=== PATIENT | female | born 1935 | race Caucasian/White ===

== ENCOUNTER → 2016-11-08 | Outpatient (CLI) | payer MEDICARE | END | disposition home or self-care (01) | LOC: LABWHC1 09:01 | PROVIDERS: ATTEND Internal Medicine Interventional Cardiology | DX: E03.9 Hypothyroidism, unspecified (principal) | CPT/HCPCS: 36415; 84439; 84443 ==

== ENCOUNTER → 2016-11-21 | Outpatient (CLI) | payer MEDICARE ==
--- NOTE | 2016-11-21 11:16 | MM ---
Reason for exam: history of breast cancer, mastectomy. Last mammogram was performed 1 year ago. History: Patient is postmenopausal, has history of breast cancer at age 69, and had previous chest radiation therapy at age 69. Family history of breast cancer in maternal cousin at age 54. Mastectomy of the right breast, October 2005. Lumpectomy of the right breast, September 2005. Chemotherapy, 2005. Radiation therapy of the right breast, 2005. Physical Findings: Nurse did not find any significant physical abnormalities on exam. MG Diagnostic Mammo LT w CAD CC and MLO view(s) were taken of the left breast. Prior study comparison: November 20, 2015, left breast MG 3d diag mammo w/cad LT. November 17, 2014, left breast MG diagnostic mammo LT w CAD. November 15, 2013, left breast MG diagnostic mammo LT w CAD. The breast tissue is heterogeneously dense. This may lower the sensitivity of mammography. Finding: There are typically benign vascular, round calcifications in the left breast. There is no discrete abnormality. These results were verbally communicated with the patient and result sheet given to the patient on 11/21/16. ASSESSMENT: Benign, BI-RAD 2 RECOMMENDATION: Follow-up diagnostic mammogram of the left breast in 1 year.
== END | disposition home or self-care (01) ==
LOC: RADMAMWWP 10:31
PROVIDERS: ATTEND Internal Medicine Hematology & Oncology
DX: Z85.3 Personal history of malignant neoplasm of breast (principal)

== ENCOUNTER 2016-12-07 07:55 | Day surgery (SDC) | payer MEDICARE ==
[2016-11-30 14:03] VITALS: BMI 27.3
[~2016-12-07 07:55] MED LIST: CLINDAMYCIN 900 MG in DEXTROSE 5% IN WATER 50 ML IVPB ONE; DEXAMETHASONE SOD PHOSPHATE 10 MG/ML 1 ML VIAL IV ONE; HYDROmorphone 1 MG/ML 1 ML SYRINGE IVP PRN; LACTATED RINGERS 1,000 ML IV SCH; MIDAZOLAM 2 MG/2 ML VIAL IV PRN; ONDANSETRON 4 MG/2 ML VIAL IVP ONE
[2016-12-07] MEDS ORDERED: LIDOCAINE 1% 20 ML VIAL (10MG/ML) FOR IV START INTRADERMA ONE (08:54)
--- NOTE | 2016-12-07 08:57 | P.GSHP ---
History of Present Illness H&P Date: 12/07/16 Chief Complaint: Incisional hernia This is a 81-year-old female who has developed a incisional hernia. Patient had a previous low anterior section. Her low midline incision has developed a mass. Hernia is reducible. Past Medical History Past Medical History: Coronary Artery Disease (CAD), Cancer, Hyperlipidemia, Hypertension, Osteoarthritis (OA), Thyroid Disorder Additional Past Medical History / Comment(s): HX OF BREAST CANCER WITH CHEMO & RADIATION (11YRS AGO), CONSTIPATION, ARTHRITIS IN HANDS. History of Any Multi-Drug Resistant Organisms: None Reported Past Surgical History: Appendectomy, Breast Surgery, Heart Catheterization With Stent, Hysterectomy, Tonsillectomy Additional Past Surgical History / Comment(s): LEFT CAROTID ENDARTECTOMY. BILATERAL CATARACTS., RIGHT MASTECTOMY., HEART CATH WITH STENTS (09/05/2002 & 02/20) Past Anesthesia/Blood Transfusion Reactions: No Reported Reaction Date of Last Stent Placement:: 02/20/2003 Past Psychological History: No Psychological Hx Reported Smoking Status: Former smoker Past Alcohol Use History: Daily Additional Past Alcohol Use History / Comment(s): QUIT: 1992 SMOKED: FOR 35 years, Smoked 2-2 1/2 PPD. Drinks 1 glass of wine daily. Past Drug Use History: None Reported - Past Family History Father Family Medical History: Myocardial Infarction ([place]) Mother Family Medical History: Myocardial Infarction ([place]) Medications and Allergies Home Medications Medication Instructions Recorded Confirmed Type Aspirin [Adult Low Dose Aspirin EC] 81 mg PO DAILY 08/27/15 11/30/16 History Levothyroxine Sodium 88 mcg PO QAM 08/27/15 11/30/16 History Losartan Potassium 100 mg PO QAM 08/27/15 11/30/16 History Simvastatin [Zocor] 80 mg PO HS 08/27/15 11/30/16 History Ezetimibe [Zetia] 10 mg PO DAILY 09/14/15 11/30/16 History Metoprolol Tartrate 25 mg PO BID 11/30/16 11/30/16 History Allergies Allergy/AdvReac Type Severity Reaction Status Date / Time Penicillins Allergy PASSED OUT Verified 12/07/16 08:21 Surgical - Exam Vital Signs Temp Pulse Resp BP Pulse Ox 97.3 F L 68 16 127/81 100 12/07/16 08:25 12/07/16 08:25 12/07/16 08:25 12/07/16 08:25 12/07/16 08:25 - General well developed, no distress - Eyes PERRL - ENT normal pinna - Neck no masses - Respiratory normal expansion - Cardiovascular Rhythm: regular - Abdomen Abdomen: non tender Hernia: incisional Assessment and Plan Plan: Incisional hernia. We'll perform laparoscopic robotic-assisted repair.
[2016-12-07] MEDS ORDERED: HEPARIN SODIUM,PORCINE 5,000 UNIT/ML 1 ML VIAL SQ ONE (09:05)
[2016-12-07] MEDS ORDERED: PHENYLEPHRINE-0.9% NACL SYG 1 MG/10 ML SYRINGE ONE (09:25)
[2016-12-07] MEDS ORDERED: fentaNYL (PF) 50 MCG/ML 2 ML AMP ONE (09:25)
[2016-12-07] MEDS ORDERED: SUCCINYLCHOLINE CHLORIDE 100 MG/5 ML SYR IV ONE (09:25)
[2016-12-07] MEDS ORDERED: GLYCOPYRROLATE 0.2 MG/ML 2 ML VIAL ONE (09:25)
[2016-12-07] MEDS ORDERED: NEOSTIGMINE 1 MG/ML 10 ML VIAL ONE (09:25)
[2016-12-07] MEDS ORDERED: ESMOLOL 100 MG/10 ML VIAL ONE (09:25)
[2016-12-07] MEDS ORDERED: ROCURONIUM BROMIDE 10 MG/ML 10 ML VIAL IV ONE (09:25)
[2016-12-07] MEDS ORDERED: ePHEDrine 50 MG/ML 1 ML AMP ONE (09:25)
[2016-12-07] MEDS ORDERED: MEPERIDINE 50 MG/ML SYRINGE ONE (09:25)
[2016-12-07] MEDS ORDERED: PROPOFOL 10 MG/ML 20 ML VIAL IV ONE (09:25)
[2016-12-07] MEDS ORDERED: LIDOCAINE 1% INJ 10MG/ML (20 ML MDV) ONE (09:25)
[2016-12-07] MEDS ORDERED: KETOROLAC 30 MG/ML 1 ML VIAL ONE (09:25)
[2016-12-07] MEDS ORDERED: MIDAZOLAM 2 MG/2 ML VIAL ONE (09:25)
[2016-12-07] MEDS ORDERED: LIDOCAINE 1%-EPI 1:100,000 20 ML VIAL SQ ONE (09:53)
--- NOTE | 2016-12-07 11:15 | P.OP ---
Date of Procedure: 12/07/16 Preoperative Diagnosis: Incisional hernia Postoperative Diagnosis: Incisional hernia Procedure(s) Performed: Laparoscopic robotic system repair of incisional hernia Implants: Anesthesia: MICHAELA Surgeon: James Berkowitz Estimated Blood Loss (ml): 10 Pathology: none sent Condition: stable Disposition: PACU Indications for Procedure: Operative Findings: Description of Procedure: The patient's placed on the operating table in the supine position. She received general anesthesia. Her abdomen was prepped and draped usual fashion. The skin incision sites were anesthetized 1% local Xylocaine. Using 11 blade the skin was incised upper quadrant then using a 5 mm optical trocar under direct visitation the peritoneal cavity is entered the abdomen was then insufflated. Next a 8 mm robotic trocar was placed in the left lower quadrant and a 12 mm trocar was placed in the left lateral position and the initial 5 mm trocar was replaced with a 8 mm robotic trocar. The patient's placed left side up position and then the patient was docked to the robot. The incisional hernia was visualized. The incisional hernias repaired using #1 strata fix suture. The hernia was then buttressed with ventral light ST mesh was secured with 20V lock suture. The patient was then undocked the robot. The needles were retrieved. The fascia of the 12 mm trocar site was closed with 0 Ethibond suture. Skin was closed interrupted 3-0 Monocryl suture. Dermabond was applied. Patient top procedure well and was sent to recovery in stable condition.
[2016-12-07] MEDS ORDERED: LACTATED RINGERS 1,000 ML IV ONE ×3 (11:23→13:55)
[2016-12-07 12:10] VITALS: TEMP 97.2
--- NOTE | 2016-12-07 12:16 | XR ---
EXAMINATION TYPE: XR chest 1V DATE OF EXAM: 12/07/2016 COMPARISON: 11/04/2010 INDICATION: Postop incisional umbilical hernia, low blood pressure, short of breath TECHNIQUE: Single frontal view of the chest is obtained. FINDINGS: The heart size is mildly prominent. The pulmonary vasculature is normal. Subcutaneous emphysema is along the left lateral chest wall. Exam is in the upright position. No pneu mothorax is evident on this image. Subcutaneous emphysema is a site of potential pneumothorax. Follo w-up exams can be performed as clinically indicated. IMPRESSION: 1. No pneumothorax is identified. There is subcutaneous emphysema lateral to the left chest wall of uncertain source. Could laparoscopic surgery be the source?
[2016-12-07 13:00] LABS: Basophils % (A) 0 %; CH 28.2; CHCM 32.4; Eosinophils % (A) 0 %; HCT 30.8 % (34.0-46.0); HDW 2.28; HGB 10.4 gm/dL (11.4-16.0); Luc # (Auto) 0.09; Luc % (Auto) 1; Lymphocytes # (A) 0.8 k/uL (1.0-4.8); Lymphocytes % (A) 12 %; MCH 29.7 pg (25.0-35.0); MCHC 33.9 g/dL (31.0-37.0); MCV 87.5 fL (80.0-100.0); Mean Platelet Volume 6.2; Monocytes # (A) 0.1 k/uL (0-1.0); Monocytes % (A) 1 %; Neutrophils # (A) 5.4 k/uL (1.3-7.7); Neutrophils % (A) 85 %; RBC 3.52 m/uL (3.80-5.40); RDW 13.6 % (11.5-15.5); WBC 6.4 k/uL (3.8-10.6)
[2016-12-07 13:08] VITALS: RESP 16
[2016-12-07] MEDS ORDERED: HYDROcodone/APAP 7.5-325MG 1 EACH TAB PO ONE (14:14)
[2016-12-07 14:51] VITALS: BP 103/67; PULSE 77
== END 2016-12-07 15:07 | disposition home or self-care (01) ==
LOC: OR 07:55
PROVIDERS: ATTEND Surgery
DX: K43.2 Incisional hernia without obstruction or gangrene (principal); I25.10 Atherosclerotic heart disease of native coronary artery without angina pectoris; I10 Essential (primary) hypertension; Z87.891 Personal history of nicotine dependence; E78.5 Hyperlipidemia, unspecified; E07.9 Disorder of thyroid, unspecified; Z79.82 Long term (current) use of aspirin; Z79.899 Other long term (current) drug therapy; Z88.0 Allergy status to penicillin
CPT/HCPCS: 86900; 86901; 85025; 86850; 71010; 49654; C1781; J2250; J1644; J1100; J2710; J2175; J2405; J2001; J3010; J1885; J1170; J2370; J0330; J2704

== ENCOUNTER → 2018-06-06 | Outpatient (CLI) | payer MEDICARE ==
--- NOTE | 2018-06-06 14:48 | MM ---
Reason for exam: additional evaluation requested from prior study. Last mammogram was performed 1 year and 6 months ago. History: Patient is postmenopausal, has history of breast cancer at age 69, and had previous chest radiation therapy at age 69. Family history of breast cancer in maternal cousin at age 54. Mastectomy of the right breast, October 2005. Lumpectomy of the right breast, September 2005. Chemotherapy, 2005. Radiation therapy of the right breast, 2005. Physical Findings: Nurse did not find any significant physical abnormalities on exam. MG 3D Diag Mammo W/Cad LT CC and MLO view(s) were taken of the left breast. Prior study comparison: November 21, 2016, left breast MG diagnostic mammo LT w CAD. November 20, 2015, left breast MG 3d diag mammo w/cad LT. The breast tissue is heterogeneously dense. This may lower the sensitivity of mammography. No significant new findings when compared with previous films. These results were verbally communicated with the patient and result sheet given to the patient on 06/06/18. ASSESSMENT: Negative, BI-RAD 1 RECOMMENDATION: Follow-up diagnostic mammogram of the left breast in 1 year.
== END | disposition home or self-care (01) ==
LOC: RADMAMWWP 13:01
PROVIDERS: ATTEND Family Medicine
DX: Z08 Encounter for follow-up examination after completed treatment for malignant neoplasm (principal); Z85.3 Personal history of malignant neoplasm of breast
CPT/HCPCS: 77065; G0279; 77061

== ENCOUNTER → 2018-09-04 | Outpatient (CLI) | payer MEDICARE ==
[2018-09-04 15:10] LABS: HCT 42.2 % (34.0-46.0); HGB 13.4 gm/dL (11.4-16.0); MCH 27.8 pg (25.0-35.0); MCHC 31.7 g/dL (31.0-37.0); MCV 87.7 fL (80.0-100.0); Mean Platelet Volume 6.4; Platelet Count 238 k/uL (150-450); RBC 4.82 m/uL (3.80-5.40); RDW 12.9 % (11.5-15.5); WBC 7.4 k/uL (3.8-10.6)
[2018-09-04 15:20] LABS: Anion Gap 10 mmol/L; Blood Urea Nitrogen 28 mg/dL (7-17); Carbon Dioxide 22 mmol/L (22-30); Chloride 102 mmol/L (98-107); Potassium 4.4 mmol/L (3.5-5.1); Sodium 134 mmol/L (137-145)
== END | disposition home or self-care (01) ==
LOC: LABPAT 14:24
PROVIDERS: ATTEND Internal Medicine Interventional Cardiology
DX: Z01.812 Encounter for preprocedural laboratory examination (principal); I20.9 Angina pectoris, unspecified; I10 Essential (primary) hypertension
CPT/HCPCS: 36415; 80051; 82565; 84520; 85027

== ENCOUNTER 2018-09-11 05:58 | Day surgery (SDC) | payer MEDICARE ==
[2018-09-11] MEDS ORDERED: ALPRAZolam 0.25 MG TAB PO PRN (05:59)
[2018-09-11] MEDS ORDERED: ALPRAZolam 0.5 MG TAB PO PRN (05:59)
[2018-09-11] MEDS ORDERED: SODIUM CHLORIDE 0.9% 1,000 ML in EMPTY BAG 1 BAG IV ONE (05:59)
[2018-09-11] MEDS ORDERED: NITROGLYCERIN SL TABS 0.4 MG TAB SUBLINGUAL PRN ×2 (05:59→08:26)
[2018-09-11] MEDS ORDERED: ATORVASTATIN 80 MG TAB PO STA (05:59)
[2018-09-11] MEDS ORDERED: ASPIRIN 325 MG TAB PO STA (05:59)
[2018-09-11] MEDS ORDERED: SODIUM CHLORIDE 0.9% 1,000 ML IV ONE (06:33)
[2018-09-11] MEDS ORDERED: LIDOCAINE 1% INJ 10MG/ML (20 ML MDV) ONE (07:16)
[2018-09-11] MEDS: MIDAZOLAM 2 MG/2 ML VIAL IVP ONE ×2 (07:22→07:25)
[2018-09-11] MEDS ORDERED: LIDOCAINE 1% INJ 10MG/ML (20 ML MDV) SQ ONE (07:24)
[2018-09-11] MEDS ORDERED: NITROGLYCERIN SL TABS 0.4 MG TAB SUBLINGUAL ONE ×4 (07:29→07:42)
[2018-09-11] MEDS ORDERED: HEPARIN SODIUM 1,000 UN/ML (10ML VL) ONE (07:39)
[2018-09-11] MEDS: HEPARIN SODIUM 1,000 UN/ML (10ML VL) IV ONE ×2 (07:40→07:54)
[2018-09-11] MEDS ORDERED: IOPAMIDOL-370 100ML BTL INJ ONE ×2 (07:50→08:06)
[2018-09-11] MEDS ORDERED: TICAGRELOR 90 MG TAB ONE (08:04)
[2018-09-11] MEDS ORDERED: TICAGRELOR 90 MG TAB PO ONE (08:06)
[2018-09-11] MEDS ORDERED: NITROGLYCERIN 1000MCG/10ML SYRINGE INTRAARTER ONE (08:11)
[2018-09-11] MEDS ORDERED: RX INFO: IV CONTRAST WAS GIVEN 1 EACH MISC MISCELLANE PRN (08:26)
[2018-09-11] MEDS ORDERED: ATROPINE SULFATE 0.1 MG/ML 10ML SYRINGE IV PRN (08:26)
[2018-09-11] MEDS ORDERED: ZOLPIDEM 5 MG TAB PO PRN (08:26)
[2018-09-11] MEDS ORDERED: MAG HYDROX/AL HYDROX/SIMETH 30 ML CUP PO PRN (08:26)
[2018-09-11] MEDS ORDERED: ALBUTEROL NEBULIZED 2.5 MG/3 ML INHALATION PRN (10:14)
[2018-09-11] MEDS ORDERED: NOREPINEPHRINE 1 MG/ML 4 ML VIAL IV ONE (11:15)
[2018-09-11] MEDS ORDERED: SODIUM CHLORIDE 0.9% 250 ML BAG ONE (11:15)
[2018-09-11] MEDS: ASPIRIN 81 MG PO SCH (14:14)
[2018-09-11] MEDS: METOPROLOL TARTRATE 25 MG TAB PO SCH ×2 (16:05→21:54)
[2018-09-11] MEDS: LOSARTAN 50 MG TAB PO SCH (16:05)
[2018-09-11] MEDS: SODIUM CHLORIDE 0.9% 1,000 ML IV SCH ×2 (16:06→21:53)
[2018-09-11 16:28] VITALS: BMI 26.9
--- NOTE | 2018-09-11 20:31 | CC ---
CARDIAC CATHETERIZATION REPORT DATE OF SERVICE: 09/11/2018 PROCEDURE: 1. Left heart catheterization and coronary angiography. 2. Percutaneous transluminal coronary angioplasty and stenting of proximal right coronary artery with a drug-eluting stent. PERFORMED BY: Dr. Sam Villarreal. Moderate conscious sedation time was 52 minutes. CLINICAL INFORMATION: Ermelinda Bell is an 82-year-old lady with a known history of CAD. In September of 2002 she had a bare metal stent to the RCA. A long segment was stented. In February of 2003, she had a stent to the proximal LAD, which was a drug-eluting Cypher stent. Since then she has done fairly well, but of late she has been having symptoms of angina. She came into the office on 09/04/2018 with symptoms strongly suggestive of unstable angina. She was advised prompt cardiac catheterization and to avoid any strenuous activity. Risks, benefits, options and rationale were explained. PROCEDURE NOTE: Under local anesthesia and strict aseptic precautions, a 6-Australian sheath was placed in the right femoral artery. Using standard Ayan catheters, I performed selective coronary angiography, and I used a pigtail catheter to check LV pressures but did not perform an LV-gram. Following the catheterization I performed intervention of the proximal LAD, which was an in-stent restenosis as well as proximal to the stent. Procedure was performed in the same setting. After that an Angio-Seal device was used to secure hemostasis, but because of continued bleeding, manual pressure was used and Femstop applied and patient was sent to the room in stable condition. CARDIAC CATHETERIZATION FINDINGS: The left ventricular end-diastolic pressure was about 18 mmHg without any gradient across the aortic valve. CORONARY ANGIOGRAPHY FINDINGS: RIGHT CORONARY ARTERY: Large dominant vessel. The stented segment in the proximal RCA is patent. Mid RCA has a 40% narrowing, eccentric in nature. Distally it bifurcates into a large PLV and smaller PDA, both of which actually are large-caliber vessels. PLV distally has a 50% to 60% narrowing in one of its branches. RCA therefore is a dominant vessel with a 40% lesion immediately after the stented segment and another 40% to 50% PLV branch lesion. PDA is free of significant disease. LEFT MAIN CORONARY ARTERY: There is an ostial disease of maybe about 10% to 15%. There is a distal disease of 10% to 15%, but body of left main is free of significant disease and bifurcates into LAD and circumflex. LEFT ANTERIOR DESCENDING CORONARY ARTERY: This was stented in the proximal portion. The stented segment in the proximal half has a 95% stenosis with haziness and thrombus and calcification. Proximal to the stent also there is a 90% narrowing. Beyond it the vessel is tortuous, has minor diffuse irregularities, heavy calcification, and several smaller septal and diagonal branches are noted. The LAD therefore has in-stent restenosis of 95% with a stenosis proximal to the stented segment as well. LEFT POSTERIOR CIRCUMFLEX CORONARY ARTERY: Nondominant vessel, has a mid lesion of 50% to 55%, limited amount of myocardium being supplied by this. It has minor irregularities. RECOMMENDATIONS: I recommended PCI of LAD that was performed in the same setting. PCI PROCEDURE DETAILS: Before I could pass a wire, I took a 3.5 left Ayan-type guide catheter and cannulated the left coronary artery, and the patient had chest pain and EKG changes with ST elevation. Promptly I took some initial pictures and advanced a run-through wire all the way distally and dilated the lesion with a 2.5 caliber 12 mm NC Trek balloon. The patient immediately stabilized. I then took a 2.75 caliber 15 mm Xience stent and deployed this in the area of narrowing. Part of this stent was proximal to the previously stented segment. Excellent angiographic result was achieved, with total resolution of chest pain and EKG changes. The patient tolerated the procedure very well. The sheath was then taken out and Angio-Seal device used. Because of continued oozing, FemoStop was applied. Excellent angiographic result without complication was achieved. Proximal to the stented segment, there is a plaque in the LAD, but not critical, and the left main also has mild disease. Results were then discussed with the patient and family, and I expect she will be discharged tomorrow if she remains stable. Excellent angiographic result without complication was achieved. Patient had transient chest pain and EKG changes, but promptly after dilatation of the balloon and stenting, symptoms and EKG changes resolved completely. MMODL / IJN: [id number] /
[2018-09-11] MEDS ORDERED: ATORVASTATIN 80 MG TAB PO SCH (21:00)
[2018-09-12] MEDS ORDERED: LEVOTHYROXINE 100 MCG TAB PO SCH (06:30)
[2018-09-12 06:48] LABS: Basophils % (A) 1 %; Eosinophils # (A) 0.2 k/uL (0-0.7); Eosinophils % (A) 3 %; HCT 35.5 % (34.0-46.0); HGB 11.6 gm/dL (11.4-16.0); Lymphocytes # (A) 1.6 k/uL (1.0-4.8); Lymphocytes % (A) 22 %; MCH 27.6 pg (25.0-35.0); MCHC 32.6 g/dL (31.0-37.0); MCV 84.6 fL (80.0-100.0); Mean Platelet Volume 6.7; Monocytes # (A) 0.5 k/uL (0-1.0); Monocytes % (A) 7 %; Neutrophils # (A) 4.7 k/uL (1.3-7.7); Neutrophils % (A) 65 %; Platelet Count 204 k/uL (150-450); RDW 12.8 % (11.5-15.5); WBC 7.2 k/uL (3.8-10.6)
[2018-09-12 07:07] LABS: Anion Gap 7 mmol/L; Blood Urea Nitrogen 21 mg/dL (7-17); Calcium 9.2 mg/dL (8.4-10.2); Carbon Dioxide 22 mmol/L (22-30); Chloride 108 mmol/L (98-107); Glucose 83 mg/dL (74-99); Sodium 137 mmol/L (137-145)
[2018-09-12] MEDS: LOSARTAN 50 MG TAB PO SCH (08:05)
[2018-09-12] MEDS: METOPROLOL TARTRATE 25 MG TAB PO SCH (08:05)
[2018-09-12] MEDS: ASPIRIN 81 MG PO SCH (08:05)
[2018-09-12 08:10] VITALS: PULSE 67; RESP 18; TEMP 98.3
[2018-09-12 08:12] VITALS: BP 137/67
[2018-09-12] MEDS ORDERED: TICAGRELOR 90 MG TAB PO SCH (09:00)
[2018-09-12] MEDS ORDERED: ASPIRIN 81 MG PO SCH (09:00)
--- NOTE | 2018-09-12 11:12 | DS ---
DISCHARGE SUMMARY DATE OF ADMISSION: 09/11/2018 DATE OF DISCHARGE: 09/12/2018 DIAGNOSES: 1. Unstable angina. 2. Known coronary artery disease with prior multivessel stenting. 3. Hypertension. 4. Hyperlipidemia. PROCEDURES PERFORMED: Left heart catheterization, coronary angiography and stenting of proximal LAD which was an in-stent restenosis with a drug-eluting stent. Mrs Ermelinda Bell was brought in electively because of symptoms of unstable angina. Cardiac catheterization was performed from the right femoral approach. She had a significant ST-segment elevation with injection of the left coronary system. I performed PTCA and stenting of in-stent restenosis within the proximal LAD within the stent and also before the stent. A 2.75 caliber 15 mm long Xience stent was deployed at 13 atmospheres. Patient had an excellent result. Postprocedure course was uneventful. Right groin is clean and dry with a good pulse. Her vital signs are stable. Blood pressure is about 110/70, pulse rate is 70 per minute. Rhythm is sinus with LVH and voltage criteria. Her laboratory data excellent. S1, S2 heard normally. Short systolic murmur is audible. Lungs are clear Abdomen is soft. Lower extremities reveal normal pulses. The right groin is clean and dry. Plan is to increase activity and discharge her and I will see her in the office on Monday at 8:45 a.m. Discharge instructions regarding activity, diet and medications were given. Patient will be on dual antiplatelet therapy. MMSEEMAL / MILTON: [id number] /
== END 2018-09-12 10:04 | disposition home or self-care (01) ==
LOC: CATHCVL 05:58 → 3SCARD 13:44 → CATHCVL 09-12 10:04
PROVIDERS: ATTEND Internal Medicine Interventional Cardiology
DX: I25.110 Atherosclerotic heart disease of native coronary artery with unstable angina pectoris (principal); I25.84 Coronary atherosclerosis due to calcified coronary lesion; T82.855A Stenosis of coronary artery stent, initial encounter; I10 Essential (primary) hypertension; I77.1 Stricture of artery; I35.1 Nonrheumatic aortic (valve) insufficiency; I77.89 Other specified disorders of arteries and arterioles; E78.5 Hyperlipidemia, unspecified; Z95.5 Presence of coronary angioplasty implant and graft; E78.00 Pure hypercholesterolemia, unspecified; Z87.891 Personal history of nicotine dependence; Z79.82 Long term (current) use of aspirin; Z79.890 Hormone replacement therapy; Z79.899 Other long term (current) drug therapy; Z88.0 Allergy status to penicillin
CPT/HCPCS: 93458; 85347; 80048; 85025; C9600; C1760; C1887; C1769 ×5; C1725; C1894; C1874; J2250; J2001; J1644; Q9967

== ENCOUNTER → 2019-04-24 | Outpatient (CLI) | payer MEDICARE ==
--- NOTE | 2019-04-24 11:39 | US ---
EXAMINATION TYPE: US carotid duplex BILAT DATE OF EXAM: 04/24/2019 COMPARISON: NONE CLINICAL HISTORY: Carotid Bruit R09.89. Patient states having left CCA endarterectomy x 10 years ago. HTN. EXAM MEASUREMENTS: RIGHT: Peak Systolic Velocity (PSV) cm/sec ----- Right CCA: 108.2 ----- Right ICA: 207.6 ----- Right ECA: 437.3 ICA/CCA ratio: 1.9 RIGHT: End Diastole cm/sec ----- Right CCA: 13.7 ----- Right ICA: 33.0 ----- Right ECA: 0.0 LEFT: Peak Systolic Velocity (PSV) cm/sec ----- Left CCA: 77.9 ----- Left ICA: 144.7 ----- Left ECA: 123.7 ICA/CCA ratio: 1.9 LEFT: End Diastole cm/sec ----- Left CCA: 9.8 ----- Left ICA: 25.2 ----- Left ECA: 0.0 VERTEBRALS (direction of flow): Right Vertebral: Antegrade Left Vertebral: Antegrade Rhythm: Normal Plaque and wall thickening visualized in bilateral CCA. Elevated velocities seen in right ICA, right ECA and left ICA. IMPRESSION: 1. Stenosis of 50-69% within the right internal carotid artery and greater than 70% of the external c arotid artery. 2. Stenosis of 50-69% within the left internal and external carotid arteries. Criteria for Assigning % of Stenosis / Diameter reduction (Estimation based on the indirect measurements of the internal carotid artery velocities (ICA PSV). 1. Normal (no stenosis)=ICA PSV < 125 cm/s: ratio < 2.0: ICA EDV<40 cm/s. 2. Less than 50% stenosis=ICA PSV < 125 cm/s: ratio < 2.0: ICA EDV<40 cm/s. 3. 50 to 69% stenosis=ICA PSV of 125 to 230 cm/s: ration 2.0 ? 4.0: ICA EDV 40-100 cm/s. 4. Greater than 70% stenosis to near occlusion= ICA PSV > 230 cm/s: ratio > 4.0: ICA EDV > 100 cm/s. 5. Near occlusion= ICA PSV velocities may be low or undetectable: variable ratio and ICA EDV. 6. Total occlusion=unable to detect flow.
== END | disposition home or self-care (01) ==
LOC: RADUSWWP 10:46
PROVIDERS: ATTEND Family Medicine
DX: I65.23 Occlusion and stenosis of bilateral carotid arteries (principal)
CPT/HCPCS: 93880

== ENCOUNTER → 2021-08-02 | Outpatient (CLI) | payer MEDICARE ==
[2021-08-02 18:20] LABS: HGB 11.7 g/dL (12.0-15.0); MCH 28.5 pg (27.0-32.0); MCHC 31.6 g/dL (32.0-37.0); Mean Platelet Volume 9.3 fL (9.5-12.2); NRBC Per 100 WBC 0 /100 WBCS (0.0-0.0); Platelet Count 213 X 10*3/uL (140-440); RBC 4.11 X 10*6/uL (4.10-5.20); RDW 14.7 % (11.5-14.5)
[2021-08-02 18:41] LABS: African American GFR (CKD) 82.4 (60.0-200.0); Blood Urea Nitrogen 23.6 mg/dL (9.0-27.0); Carbon Dioxide 23.6 mmol/L (20.0-27.5); Non-African American GFR(CKD) 71.1 (60.0-200.0); Potassium 4.6 mmol/L (3.5-5.5)
== END | disposition home or self-care (01) ==
LOC: LABPAT 10:55
PROVIDERS: ATTEND Internal Medicine Interventional Cardiology
DX: Z01.812 Encounter for preprocedural laboratory examination (principal); R55 Syncope and collapse
CPT/HCPCS: 36415; 80051; 82565; 84520; 85027

== ENCOUNTER → 2022-07-04 | Outpatient (CLI) | payer MEDICARE ==
[2022-07-04 22:49] LABS: Basophils # (A) 0.04 X 10*3/uL (0.00-0.10); Basophils % (A) 0.5 %; Eosinophils # (A) 0.08 X 10*3/uL (0.04-0.35); HGB 11.8 g/dL (12.0-15.0); Immature Grans, Automated 0.2 %; Lymphocytes # (A) 1.88 X 10*3/uL (0.90-5.00); Lymphocytes % (A) 22.6 %; MCH 28.7 pg (27.0-32.0); MCHC 31.9 g/dL (32.0-37.0); Mean Platelet Volume 9.2 fL (9.5-12.2); Monocytes # (A) 0.88 X 10*3/uL (0.20-1.00); Monocytes % (A) 10.6 %; NRBC Per 100 WBC 0 /100 WBCS (0.0-0.0); Neutrophils # (A) 5.42 X 10*3/uL (1.80-7.70); Neutrophils % (A) 65.1 %; Platelet Count 212 X 10*3/uL (140-440); RBC 4.11 X 10*6/uL (4.10-5.20); RDW 14.4 % (11.5-14.5); WBC 8.32 X 10*3/uL (4.50-10.00)
[2022-07-04 23:35] LABS: African American GFR (CKD) 78.5 (60.0-200.0); Anion Gap 10.1 mmol/L (10.00-18.00); Blood Urea Nitrogen 27.8 mg/dL (9.0-27.0); Carbon Dioxide 23.9 mmol/L (20.0-27.5); Non-African American GFR(CKD) 67.7 (60.0-200.0); Potassium 4.5 mmol/L (3.5-5.5)
== END | disposition home or self-care (01) ==
LOC: LABWHC1 13:55
PROVIDERS: ATTEND Internal Medicine Interventional Cardiology
DX: Z01.812 Encounter for preprocedural laboratory examination (principal); I25.10 Atherosclerotic heart disease of native coronary artery without angina pectoris
CPT/HCPCS: 36415; 80051; 82565; 84520; 85025

== ENCOUNTER → 2022-09-20 | Outpatient (CLI) | payer MEDICARE ==
[2022-09-20 16:09] LABS: HCT 34.5 % (37.2-46.3); HGB 11.4 g/dL (12.0-15.0); MCV 84.8 fL (80.0-97.0); Mean Platelet Volume 9.2 fL (9.5-12.2); NRBC Per 100 WBC 0 /100 WBCS (0.0-0.0); Platelet Count 191 X 10*3/uL (140-440); RBC 4.07 X 10*6/uL (4.10-5.20); RDW 13.6 % (11.5-14.5); WBC 8.01 X 10*3/uL (4.50-10.00)
[2022-09-20 16:14] LABS: Anion Gap 10.1 mmol/L (10.00-18.00); Blood Urea Nitrogen 25.9 mg/dL (9.0-27.0); Carbon Dioxide 24.4 mmol/L (20.0-27.5); Non-African American GFR(CKD) 55.2 (60.0-200.0)
== END | disposition home or self-care (01) ==
LOC: LABWHC1 11:26
PROVIDERS: ATTEND Internal Medicine Interventional Cardiology
DX: Z01.812 Encounter for preprocedural laboratory examination (principal); I25.10 Atherosclerotic heart disease of native coronary artery without angina pectoris
CPT/HCPCS: 36415; 80051; 82565; 84520; 85027

== ENCOUNTER 2022-09-27 08:49 | Inpatient (IN) | payer MEDICARE ==
[~2022-09-27 08:49] MED LIST changes: +ALPRAZolam 0.25 MG TAB PO PRN; +ALPRAZolam 0.5 MG TAB PO PRN; +ASPIRIN 325 MG TAB PO ONE; -CLINDAMYCIN 900 MG in DEXTROSE 5% IN WATER 50 ML IVPB ONE; -DEXAMETHASONE SOD PHOSPHATE 10 MG/ML 1 ML VIAL IV ONE; -HYDROmorphone 1 MG/ML 1 ML SYRINGE IVP PRN; -LACTATED RINGERS 1,000 ML IV SCH; -MIDAZOLAM 2 MG/2 ML VIAL IV PRN; +NITROGLYCERIN SL TABS 0.4 MG TAB SUBLINGUAL PRN; -ONDANSETRON 4 MG/2 ML VIAL IVP ONE
[2022-09-27] MEDS: SODIUM CHLORIDE 0.9% 1,000 ML in EMPTY BAG 1 BAG IV SCH (09:12)
[2022-09-27] MEDS ORDERED: VERAPAMIL 2.5 MG/ML 2 ML AMP ONE (10:04)
[2022-09-27] MEDS: MIDAZOLAM 2 MG/2 ML VIAL IVP ONE ×2 (10:40→11:03)
[2022-09-27] MEDS ORDERED: LIDOCAINE 1% INJ 10MG/ML (5 ML VIAL-PF) SQ ONE (10:41)
[2022-09-27] MEDS ORDERED: VERAPAMIL SYRINGE (5 MG/10 ML) INTRAARTER ONE (10:46)
[2022-09-27] MEDS ORDERED: HEPARIN SODIUM 1,000 UN/ML (10ML VL) IVP ONE (10:49)
[2022-09-27] MEDS ORDERED: LIDOCAINE 1% INJ 10MG/ML (20 ML MDV) ONE ×2 (11:00→11:21)
[2022-09-27] MEDS ORDERED: fentaNYL (PF) 50 MCG/ML 2 ML AMP ONE (11:07)
[2022-09-27] MEDS: fentaNYL (PF) 50 MCG/ML 2 ML AMP IVP ONE ×2 (11:09→11:20)
[2022-09-27] MEDS: PHENYLEPHRINE-0.9% NACL SYG 1,000 MCG/10 ML SYRINGE IV ONE ×2 (11:45→11:50)
[2022-09-27] MEDS ORDERED: NITROGLYCERIN SL TABS 0.4 MG TAB SUBLINGUAL ONE ×2 (11:46→11:47)
[2022-09-27] MEDS ORDERED: SODIUM CHLORIDE 0.9% 1,000 ML IV ONE (11:50)
[2022-09-27] MEDS ORDERED: IOPAMIDOL-370 100ML BTL INJ ONE (11:50)
[2022-09-27] MEDS ORDERED: NITROGLYCERIN 1000MCG/10ML SYRINGE IV ONE (12:00)
[2022-09-27] MEDS ORDERED: SODIUM CHLORIDE 0.9% 1,000 ML IV SCH (16:45)
[2022-09-27 17:16] LABS: Basophils % (A) 0 %; Eosinophils # (A) 0.1 k/uL (0-0.7); Eosinophils % (A) 1 %; HCT 26.9 % (34.0-46.0); HGB 9.2 gm/dL (11.4-16.0); Lymphocytes # (A) 2.3 k/uL (1.0-4.8); Lymphocytes % (A) 31 %; MCH 28.5 pg (25.0-35.0); MCHC 34.1 g/dL (31.0-37.0); MCV 83.8 fL (80.0-100.0); Mean Platelet Volume 7.4; Monocytes # (A) 0.4 k/uL (0-1.0); Monocytes % (A) 6 %; Neutrophils # (A) 4.3 k/uL (1.3-7.7); Neutrophils % (A) 59 %; Platelet Count 191 k/uL (150-450); RBC 3.21 m/uL (3.80-5.40); WBC 7.4 k/uL (3.8-10.6)
[2022-09-27 17:29] LABS: African American GFR (CKD) >90 (>60 ml/min/1.73 sqM); Anion Gap 8 mmol/L; Blood Urea Nitrogen 22 mg/dL (7-17); Carbon Dioxide 19 mmol/L (22-30); Chloride 103 mmol/L (98-107); Glucose 174 mg/dL (74-99); Non-African American GFR(CKD) 85 (>60 ml/min/1.73 sqM); Potassium 4.1 mmol/L (3.5-5.1); Sodium 130 mmol/L (137-145)
[2022-09-27 18:22] LABS: Glucose,Whole Blood 137 mg/dL (70-110)
[2022-09-27] MEDS ORDERED: NALOXONE 0.4 MG/ML 1 ML VIAL IV PRN (18:37)
--- NOTE | 2022-09-27 19:34 | CC ---
CARDIAC CATHETERIZATION REPORT DATE OF SERVICE: 09/27/2022. PROCEDURE PERFORMED: Coronary angiography. PERFORMED BY: Dr. Sam Villarreal. Moderate conscious sedation time was 71 minutes. The patient was administered Versed and fentanyl. Oxygen saturation, hemodynamics, and EKG were monitored closely. CLINICAL INFORMATION: Ms. Ermelinda Bell is an 86-year-old lady with a history of CAD, previous stenting of RCA and LAD performed over the past several years, the last one was of LAD performed in 2019. Because of an abnormal stress test and episodes of exertional shortness of breath, she was advised cardiac catheterization after due discussion regarding risks, benefits, and options. The initial cardiac catheterization in July was incomplete because I had difficulty with access. I brought her here after due discussion with the patient and and family. PROCEDURE NOTE: Under local anesthesia and strict aseptic precautions with the help of ultrasound, I gained access into the right radial artery. I advanced the wire, which was a Glidewire, but I could not advance beyond the axillary artery. There was stenosis and also seemed to be some fibrosis. The patient had mastectomy and probably some radiation also. The vessel was occluded. There was not much flow. There was collateral flow. I, therefore, abandoned and went from the right femoral approach. With the ultrasound, the access of the right femoral was achieved. I used a micropuncture dilator, and I also used a 6-Romansh dilator only, but I could not advance the wire because there was a complete occlusion in the iliac area; therefore, I applied manual pressure and took the introducer out. After securing hemostasis on the right side, I attempted from the left side under fluoroscopic guidance with the micropuncture needle technique. I was able to gain access. A 6-Romansh introducer was placed. There was extreme tortuosity. I used a 5-Romansh long 23 mm sheath with an Amplatz wire. With this, I was able to keep the sheath in a decent position. There was some oozing around the sheath. Standard Ayan catheters were used to perform coronary angiography. LV pressures were not checked. The patient does not have any significant disease involving the coronaries, and the stented segments are widely patent both in RCA and LAD. The sheath was then taken out. Manual compression was used to secure hemostasis, and FemoStop will be applied. Results were discussed with the patient and family. Continued medical therapy with risk factor modification advised. We will have to watch both groins and right radial site very closely. A TR band was applied to the right radial site, and saturation was 92%. The patient was sent to the [facility], and the sheath in the left groin would be addressed with a FemoStop. I expect the patient to be discharged at 6 p.m., and I will see her in the office next Monday. CORONARY ANGIOGRAPHY FINDINGS: RIGHT CORONARY ARTERY: This is a very heavily calcified tortuous vessel, that is stented in the entire area in the proximal one-third. The stented segment is widely patent with a decent flow. In the midportion, there is about a 40% narrowing. Distally, it bifurcates into PDA and PLV. PLV has a 40% narrowing. PDA has a 30% narrowing. Both of these are large vessels. No significant disease. There is heavy calcification but widely patent vessels with brisk flow, and the stented segment in the proximal and mid RCA is patent. LEFT MAIN CORONARY ARTERY: Short, patent vessel, free of significant disease, that bifurcates into LAD and circumflex. LEFT ANTERIOR DESCENDING CORONARY ARTERY: Good-caliber vessel. The stented segment in the proximal and midportion is widely patent. The vessel runs all the way to the apex giving off septal and diagonal branches. No significant disease. Stented segment is widely patent. LEFT POSTERIOR CIRCUMFLEX CORONARY ARTERY: Small vessel, minor irregularities, about a 50% mid lesion, small branches. No significant disease. LEFT VENTRICULOGRAM: Left ventriculogram was not performed. FINAL IMPRESSION: This patient has a right-dominant system. About a 40% mid right coronary artery stenosis. The stents in the right coronary artery are widely patent, superdominant vessel. Both posterior descending artery and posterior left ventricular are widely patent with a 40% posterior left ventricular lesion. Left main and left anterior descending are free of significant disease. Circumflex has a 50% lesion, small, nondominant vessel. RECOMMENDATIONS: Findings were discussed with the patient and family. Continued medical therapy with risk factor modification. Discharge later on today. We will see her in the office in 1 week. MMODL / IJN: [id number] /
--- NOTE | 2022-09-27 20:59 | CT ---
EXAMINATION TYPE: CT abdomen pelvis wo con CT DLP: 681.2 mGycm, Automated exposure control for dose reduction was used. DATE OF EXAM: 09/27/2022 8:28 PM COMPARISON: CT abdomen pelvis most recent from 05/12/2016 CLINICAL INDICATION:Female, 86 years old with history of rule out retroperitoneal bleed; Rule out ret roperitoneal bleed. TECHNIQUE: Axial CT of the abdomen and pelvis. Sagittal and coronal reformats were created on a [employer] workstation. Contrast used: None Oral contrast used: without Oral Contrast FINDINGS: LOWER CHEST: Mitral valve annular calcifications. Coronary artery calcifications.2 a loop recorder se en in the subcutaneous tissues. ABDOMEN LIVER: Hepatic probable cysts are present. GALLBLADDER AND BILE DUCTS: Unremarkable. PANCREAS: Unremarkable. SPLEEN: Unremarkable. ADRENAL GLANDS: Unremarkable. KIDNEYS AND URETERS: No evidence of hydronephrosis or renal calculus. The ureters are unremarkable. Atrophic appearance of the left kidney compared to the right. High density material within the collec ting systems felt to relate to excreted IV contrast from prior study. PELVIS BLADDER: Nondistended with Ferguson catheter in place. High density excreted contrast within the bladder lumen. REPRODUCTIVE: Unremarkable. ABDOMEN & PELVIS STOMACH AND BOWEL: No evidence of bowel obstruction. Moderate stool burden within the rectum. PERITONEUM/RETROPERITONEUM: No evidence of pneumoperitoneum or free fluid. VASCULATURE: Severe atherosclerotic calcifications are present throughout the abdominal aorta and its branches. No evidence of aortic aneurysm. MUSCULOSKELETAL: No acute osseous abnormalities. Moderate disc degeneration changes are present throu ghout the thoracolumbar spine. LYMPH NODES: No gross evidence for lymphadenopathy. SOFT TISSUE/ABDOMINAL WALL: Right lower anterior abdominal wall/inguinal region higher density fluid collection compatible with hemorrhage measuring 6.7 x 2.8 x 6.7 cm. IMPRESSION: 1. No retroperitoneal hemorrhage. 2. Right lower anterior abdominal wall/inguinal region hematoma measuring 6.7 x 2.8 x 6.7 cm. No paul dence for active extravasation however evaluation is limited given noncontrast technique.
[2022-09-27 21:41] LABS: Basophils % (A) 0 %; Eosinophils % (A) 0 %; HCT 25.7 % (34.0-46.0); HGB 8.6 gm/dL (11.4-16.0); Lymphocytes # (A) 0.9 k/uL (1.0-4.8); Lymphocytes % (A) 12 %; MCH 28.1 pg (25.0-35.0); MCHC 33.3 g/dL (31.0-37.0); MCV 84.5 fL (80.0-100.0); Mean Platelet Volume 7.5; Monocytes # (A) 0.4 k/uL (0-1.0); Monocytes % (A) 5 %; Neutrophils % (A) 80 %; Platelet Count 160 k/uL (150-450); RBC 3.04 m/uL (3.80-5.40); RDW 14.1 % (11.5-15.5); WBC 7.4 k/uL (3.8-10.6)
[2022-09-27] MEDS: DEXTROSE/WATER 1 250ML.BAG with DOPamine DRIP 800 MG IV SCH (21:47)
--- NOTE | 2022-09-27 22:28 | PN ---
PROGRESS NOTE This is an 86-year-old lady with a history of hypertension, hyperlipidemia, and previous history of breast cancer, who also has multivessel PCI. She was admitted electively for a repeat cardiac catheterization since the previous cardiac catheterization in July was somewhat incomplete, and she continues to have exertional shortness of breath and chest tightness. She has significant vascular problems, and previously, I had difficulty gaining access from the right because of extreme calcification, and eventually, I got access on the left side in July, but could not complete the procedure because of extreme tortuosity and calcification in the iliac system. She has a previous right mastectomy. I performed the cardiac catheterization from the right radial approach, and I found that the axillary artery was occluded. I switched over to the right femoral and noted that the iliac artery had occlusion, and I could not advance the wire. I then did left femoral approach access with a micropuncture needle technique and placed a 5-Telugu long introducer and then performed the cardiac catheterization using standard Ayan catheters. Catheterization revealed that her RCA and LAD that were previously stented were widely patent with a 50% lesion in the circumflex nondominant vessel. Following the procedure, she was doing fairly well. Both groins were clean and dry; but however, she had an episode when she was enjoying her dinner felt a gassy feeling in her stomach, then she burped and felt a queasy, uncomfortable sensation in the abdomen followed by an episode of near-syncope requiring A Team assistance. There were also a lot of blood clots found in the bottom suggesting that she could have either had some bleeding or clots from the rectum or the vagina, but the rectal exam revealed no blood. At this time, because of the A Team issue and hypotension, she was transferred to the ICU. She is on 100 mL normal saline. Blood pressure is about 108/70, heart rate is 64 per minute. She is very comfortable, resting. A repeat hemoglobin performed about an hour and a half ago was 9.2. The initial on admission was 11, but she received a lot of fluid in the interim. I am concerned that there may be some blood loss internally. I will, therefore, do a CAT scan of the abdomen and pelvis to rule out any retroperitoneal hematoma. The patient actually received only 2000 units of heparin or so during the cardiac catheterization. We will obtain a retroperitoneal hematoma assessment by way of a CAT scan without contrast and also obtain serial hemoglobins. Based on this, we will make further recommendations. We will leave her on 100 mL normal saline. I also performed an angiography through the long sheath and noted that the vascular system was intact without any evidence of extravasation before I pulled the sheath out. I discussed these issues with the patient. There was no family available. We will watch her closely in the ICU, monitor her closely, obtain serial hemoglobins, and do a retroperitoneal hematoma assessment by way of a CAT scan of abdomen and pelvis. I will keep her in the hospital to re-evaluate her again in the morning. She will be admitted to Dr. Kavon Schaefer, and I also spoke to Dr. Hanna, who is the wrapper cashier today. We will check on the hemoglobin that will be done at 9 o'clock today. Prognosis remains guarded. MMODL / IJN: [id number] /
--- NOTE | 2022-09-28 02:40 | P.CNPUL ---
History of Present Illness Consult date: 09/28/22 Requesting physician: Kavon Schaefer Reason for consult: other (ICU management) Chief complaint: Postoperative bleeding History of present illness: I'm seeing this patient in consultation today 09/28/2022 for ICU management. Patient is a 86-year-old female with past medical history of coronary artery disease with previous stenting of the RCA and LAD, hypertension, hyperlipidemia, breast cancer with previous right mastectomy. The patient had been reporting exertional shortness of breath and chest tightness over the past couple months. Patient was admitted yesterday for elective cardiac catheterization. Apparently, vascular access was difficult to obtain. Attempts were made at the right radial, right femoral, and ultimately the left femoral approach was used. Postoperatively, the patient developed abdominal discomfort and had a near syncopal event. Upon further investigation, a large amount of blood was found around the rectovaginal area. The patient was given 2000 units of heparin during the procedure. An A-team was initiated for hypotension, and the patient was transferred to intensive care unit. The patient was stabilized and taken down for an abdominal pelvis CT without contrast which showed no retroperitoneal hemorrhage. There was a right lower anterior abdominal wall/inguinal hematoma measuring 6.7 x 2.8 x 6.7 cm. No evidence of active extravasation. No further reports of bleeding per RN. Patient's hematoma site was reduced and the patient currently has a FemoStop with 40 mmhg over the right femoral site. Site appears soft and non-ecchymotic. Patient is currently resting in bed, on 4 L nasal cannula, in no acute distress. She is oxygenating at 98-99%, and her FiO2 could be weaned down. She denies any abdominal pain, nausea, vomiting, diarrhea. No vaginal bleeding reported. Patient was started on dopamine infusion which is infusing at 2 mics per kilogram per minute. Blood pressure is currently normotensive. Patient was fluid resuscitated intraoperatively, and has normal saline infusing at 100 mL per hour. Patient has not required any blood products. Patient's most recent hemoglobin is 8.6 down from 9.2 earlier, hematocrit 25.7. Patient's BMP on admission shows a sodium of 130, potassium 4.1, chloride 103, serum CO2 19, BP 122, creatinine 0.58, glucose 174. Vital signs are currently stable. h Review of Systems REVIEW OF SYSTEMS: CONSTITUTIONAL: Denies any recent significant weight loss or weight gain. EYES: Denies change in vision. EARS, NOSE, MOUTH, THROAT: Denies headaches, denies sore throat. CARDIOVASCULAR: Denies chest pain, palpitations or syncopal episodes. RESPIRATORY: Denies shortness of breath, cough, congestion or hemoptysis. GASTROINTESTINAL: Denies change in appetite, abdominal pain, nausea and vomiting, or diarrhea GENITOURINARY: Denies hematuria, denies infections. MUSKULOSKELETAL: Denies pain, denies swelling. INTEGUMENTARY: Denies rash, denies eczema. NEUROLOGICAL: Denies recent memory loss, no recent seizure activity. PSYCHIATRIC: Denies anxiety, denies depression. HEMATOLOGIC/LYMPHATIC: Denies anemia, denies enlarged lymph node Past Medical History Past Medical History: Coronary Artery Disease (CAD), Cancer, Chest Pain / Angina, GERD/Reflux, Hyperlipidemia, Hypertension, Osteoarthritis (OA), Pne umonia, Thyroid Disorder Additional Past Medical History / Comment(s): See Dr Villarreal's H&P.. HX OF BREAST CANCER WITH CHEMO & RADIATION 2005, urinary leakage-wears a pad. History of Any Multi-Drug Resistant Organisms: None Reported Past Surgical History: Appendectomy, Bowel Resection, Breast Surgery, Heart Catheterization With Stent, Hysterectomy, Tonsillectomy Additional Past Surgical History / Comment(s): LEFT CAROTID ENDARTERECTOMY, BILATERAL CATARACTS, RIGHT MASTECTOMY, STENTS X2 (09/05/2002 & 02/20/2003). eye surgery for readjust the lens Past Anesthesia/Blood Transfusion Reactions: No Reported Reaction Date of Last Stent Placement:: 02/20/2003 Past Psychological History: No Psychological Hx Reported Smoking Status: Former smoker Past Alcohol Use History: Daily Additional Past Alcohol Use History / Comment(s): Quit smoking in 1992, smoked for 35 years, 2-2 1/2 PPD. DRINKS 1 GLASS OF WINE DAILY. Past Drug Use History: None Reported - Past Family History Father Family Medical History: Myocardial Infarction ([place]) Mother Family Medical History: Myocardial Infarction ([place]) Medications and Allergies Home Medications Medication Instructions Recorded Confirmed Type Aspirin [Adult Low Dose Aspirin EC] 81 mg PO DAILY 08/27/15 09/27/22 History Metoprolol Tartrate 25 mg PO DAILY 11/30/16 09/27/22 History Levothyroxine Sodium [Synthroid] 100 mcg PO DAILY 09/07/18 09/27/22 History Atorvastatin [Lipitor] 80 mg PO HS #90 tab 09/12/18 09/27/22 Rx Losartan Potassium [Cozaar] 100 mg PO DAILY 07/01/22 09/27/22 History Ubidecarenone [Co Q-10] 30 mg PO DAILY 07/01/22 09/27/22 History Vit C/E/Zn/Coppr/Lutein/Zeaxan 1 each PO BID 09/21/22 09/27/22 History [Preservision Areds 2 Softgel] Allergies Allergy/AdvReac Type Severity Reaction Status Date / Time Penicillins Allergy PASSED OUT Verified 09/21/22 12:39 Physical Exam Vitals: Vital Signs Temp Pulse Pulse Resp BP BP BP 09/28/22 01:00 90 6 L 99/62 09/28/22 00:30 87 19 91/55 09/28/22 00:00 97.7 F 85 9 L 96/49 09/27/22 23:30 78 8 L 93/64 09/27/22 23:07 75 0 L 93/64 09/27/22 23:00 76 5 L 97/62 09/27/22 22:30 77 10 L 96/54 09/27/22 22:00 74 12 90/51 09/27/22 21:30 70 0 L 97/52 09/27/22 21:00 68 8 L 92/54 09/27/22 20:30 67 18 103/54 09/27/22 20:00 97.6 F 71 9 L 79/61 09/27/22 19:30 70 29 H 96/46 09/27/22 19:00 67 31 H 99/50 09/27/22 18:40 65 14 99/50 09/27/22 18:30 65 23 109/67 09/27/22 18:20 67 13 109/67 09/27/22 18:16 67 22 09/27/22 18:00 80 16 101/50 09/27/22 17:49 64 16 117/55 09/27/22 17:36 64 14 114/57 09/27/22 17:28 60 16 103/54 09/27/22 16:58 62 16 97/64 09/27/22 16:50 66 14 89/54 09/27/22 16:26 62 14 115/54 09/27/22 15:41 66 16 97/52 09/27/22 14:41 60 16 88/52 09/27/22 14:11 88 16 94/50 09/27/22 13:11 68 16 97/57 09/27/22 12:56 75 16 105/62 09/27/22 12:40 70 16 81/49 09/27/22 09:20 97.9 F 84 16 142/76 184/101 Pulse Ox 09/28/22 01:00 99 09/28/22 00:30 99 09/28/22 00:00 99 09/27/22 23:30 99 09/27/22 23:07 98 09/27/22 23:00 99 09/27/22 22:30 99 09/27/22 22:00 98 09/27/22 21:30 99 09/27/22 21:00 99 09/27/22 20:30 98 09/27/22 20:00 98 09/27/22 19:30 90 L 09/27/22 19:00 98 09/27/22 18:40 97 09/27/22 18:30 96 09/27/22 18:20 100 09/27/22 18:16 09/27/22 18:00 94 L 09/27/22 17:49 100 09/27/22 17:36 09/27/22 17:28 100 09/27/22 16:58 09/27/22 16:50 09/27/22 16:26 09/27/22 15:41 09/27/22 14:41 09/27/22 14:11 96 09/27/22 13:11 96 09/27/22 12:56 98 09/27/22 12:40 97 09/27/22 09:20 97 Intake and Output 09/27/22 09/27/22 09/28/22 14:59 22:59 06:59 Intake Total 1000 1700 300 Output Total 120 140 Balance 1000 1580 160 Intake: IV 1000 400 300 Sodium Chloride 0.9% 1, 400 300 000 ml @ 100 mls/hr IV . [facility] Rx#:[id number] Intake, IV Titration 1300 Amount Sodium Chloride 0.9% 1, 1300 000 ml @ 100 mls/hr IV . Q10H [facility] Rx#:[id number] Output: Urine 120 140 Other: Voiding Method Indwelling Catheter Indwelling Catheter # Voids 1 Weight 60.4 kg 60.4 kg GENERAL EXAM: Alert, 86-year-old white female, comfortable in no apparent distress. HEAD: Normocephalic and atraumatic EYES: Normal reaction of pupils, equal size. NOSE: Clear with pink turbinates. THROAT: No erythema or exudates. NECK: No masses, no JVD. CHEST: No chest wall deformity. LUNGS: Equal air entry with no crackles, wheeze, rhonchi or dullness. On 4 L nasal cannula. No conversational dyspnea or accessory muscle use.. CVS: S1 and S2 normal with no audible murmur, regular rhythm. No extra heart sounds ABDOMEN: No hepatosplenomegaly, active bowel sounds, no guarding or rigidity. SPINE: No scoliosis or deformity SKIN: No rashes CENTRAL NERVOUS SYSTEM: No focal deficits, tone is normal in all 4 extremities. EXTREMITIES: There is no peripheral edema, clubbing, or cyanosis. Peripheral pulses are intact. Right femoral access site is soft without ecchymosis Genitourinary: No obvious rectal or vaginal bleeding noted. Results - Laboratory Findings CBC and BMP: 09/27/22 20:51 09/27/22 16:40 Abnormal lab findings: Abnormal Labs 09/27/22 09/27/22 09/27/22 16:40 16:40 18:19 RBC 3.21 L Hgb 9.2 L Hct 26.9 L Lymphocytes # Sodium 130 L Carbon Dioxide 19 L BUN 22 H Glucose 174 H POC Glucose (mg/dL) 137 H Calcium 8.0 L 09/27/22 20:51 RBC 3.04 L Hgb 8.6 L Hct 25.7 L Lymphocytes # 0.9 L Sodium Carbon Dioxide BUN Glucose POC Glucose (mg/dL) Calcium Assessment and Plan Assessment: Postoperative hemorrhage and hypovolemic shock. Abdominal pelvis CT without contrast showed no retroperitoneal hemorrhage. There was a right lower anterior abdominal wall/inguinal hematoma measuring 6.7 x 2.8 x 6.7. Patient did require fluid resuscitation, and currently has dopamine infusing at 2 mics per kilogram per minute. Patient has not required any blood products as of yet. Coronary artery disease with previous stents to the RCA and LAD. Patient's heart catheterization from yesterday reveleased about a 40% mid right coronary artery stenosis. The stents in the right coronary artery are widely patent, super dominant vessel. Both posterior descending artery and posterior left ventricular branch are widely patent with 40% posterior left ventricular lesion. Left main and left anterior descending are free of significant disease. Circumflex has a 50% lesion, small, nondominant vessel. Recommendations were made per cardiology for medical management. Acute hypoxic respiratory failure secondary to above. Currently on 4 L nasal cannula Hypertension Hyperlipidemia History of breast cancer with previous right mastectomy Plan: Patient's medications and labs were reviewed Serial hemoglobins Monitor for further bleeding, however, appears hemostasis achieved FemoStop over the right femoral access site Medical management of patient's coronary artery disease per cardiology Dopamine per cardiology Normal saline is infusing at 100 mL per hour Wean FiO2 as tolerated Chest x-ray in the morning Patient will be monitored in the intensive care unit overnight I have personally seen and examined the patient, performed the documentation and the assessment and plan as written. Number of minutes spent on the visit:20 Time with Patient: Greater than 30
[2022-09-28 06:08] LABS: Basophils % (A) 0 %; Eosinophils # (A) 0.1 k/uL (0-0.7); Eosinophils % (A) 2 %; HCT 24.7 % (34.0-46.0); HGB 8.1 gm/dL (11.4-16.0); Lymphocytes # (A) 1.1 k/uL (1.0-4.8); Lymphocytes % (A) 15 %; MCHC 32.7 g/dL (31.0-37.0); MCV 85.8 fL (80.0-100.0); Mean Platelet Volume 7.2; Monocytes # (A) 0.4 k/uL (0-1.0); Monocytes % (A) 6 %; Neutrophils # (A) 5.4 k/uL (1.3-7.7); Neutrophils % (A) 76 %; Platelet Count 162 k/uL (150-450); RBC 2.88 m/uL (3.80-5.40); WBC 7.1 k/uL (3.8-10.6)
[2022-09-28 06:17] LABS: African American GFR (CKD) >90 (>60 ml/min/1.73 sqM); Anion Gap 5 mmol/L; Blood Urea Nitrogen 18 mg/dL (7-17); Calcium 8.1 mg/dL (8.4-10.2); Carbon Dioxide 19 mmol/L (22-30); Chloride 109 mmol/L (98-107); Glucose 93 mg/dL (74-99); Magnesium 1.7 mg/dL (1.6-2.3); Non-African American GFR(CKD) 86 (>60 ml/min/1.73 sqM); Sodium 133 mmol/L (137-145)
[2022-09-28 06:31] LABS: INR 1.1 (<1.2); Prothrombin Time 11.7 sec (9.0-12.0)
[2022-09-28] MEDS: SODIUM CHLORIDE 0.9% 1,000 ML in EMPTY BAG 1 BAG IV SCH ×3 (06:59→20:10)
--- NOTE | 2022-09-28 07:22 | XR ---
EXAMINATION TYPE: XR chest 1V portable DATE OF EXAM: 09/28/2022 6:23 AM COMPARISON: Chest radiographs from 12/07/2016 TECHNIQUE: XR chest 1V portable Frontal view of the chest. CLINICAL INDICATION:Female, 86 years old with history of dyspnea; FINDINGS: Lungs/Pleura: There is no evidence of pleural effusion, focal consolidation, or pneumothorax. Pulmonary vascularity: Unremarkable. Heart/mediastinum: Cardiomediastinal silhouette is enlarged and stable. A loop recorder projects over the left thorax over the heart. Musculoskeletal: Degenerative changes of the shoulder joints. IMPRESSION: 1. No acute cardiopulmonary disease process. 2. COPD changes.
--- NOTE | 2022-09-28 08:08 | P.CRDCN ---
History of Present Illness History of present illness: HISTORY OF PRESENTING ILLNESS Patient is a pleasant 86-year-old female history of hypertension, hyperlipidemia, breast cancer with prior mastectomy, CAD status post prior RCA and LAD stenting. She has been having it atypical shortness breath and chest tightness over the last few months and therefore underwent elective heart catheterization yesterday. There was difficulty obtaining axis with right radial access unsuccessful and right femoral axis obtained however unable to advance sheath and had some amount of bleeding with pressure held in the right femoral site. Eventually catheterization was able to be at pain through the left femoral site. Postoperatively she became lightheaded and noted to have hypotension. CT abdomen and pelvis showed right abdominal wall/inguinal hemat gilbert measuring approximate 6 x 6 cm. There is no active extravasation. A FemoStop was placed and currently has been removed with no significant increase in hematoma. She is on dopamine at 2 mics per kilogram per minute and blood pressure still borderline in the 80s over 50s. She states she feels better currently. She is receiving normal saline at 100 mL per hour. She denies any chest pain or pressure or shortness breath currently. Hemoglobin this morning 8.1, down from 9.2 yesterday. Creatinine stable at 0.56. REVIEW OF SYSTEMS At the time of my exam: CONSTITUTIONAL: Denies fever or chills. CARDIOVASCULAR: +occasional episodes of chest pain, + chronic shortness of breath, no orthopnea, PND or palpitations. RESPIRATORY: Denies cough. GASTROINTESTINAL: Denies abdominal pain, diarrhea, constipation, nausea or vomiting. MUSCULOSKELETAL: Denies myalgias. NEUROLOGIC: Denies numbness, tingling or weakness. ENDOCRINE: Denies fatigue, weight change, polydipsia or polyurina. GENITOURINARY: Denies burning, hematuria or urgency with micturation. HEMATOLOGIC: Denies history of anemia or bleeding. PHYSICAL EXAMINATION Vital signs reviewed. CONSTITUTIONAL: No apparent distress. HEENT: Head is normocephalic. Pupils are equal, round. Sclerae anicteric. Mucous membranes of the mouth are moist. No JVD. No carotid bruit. CHEST EXAMINATION: Lungs are clear to auscultation. No chest wall tenderness is noted on palpation or with deep breathing. HEART EXAMINATION: Regular rate and rhythm. S1, S2 heard. No murmurs, gallops or rub. ABDOMEN: Soft, nontender. Positive bowel sounds. EXTREMITIES: 2+ peripheral pulses, no lower extremity edema and no calf tenderness. NEUROLOGIC EXAMINATION: Patient is awake, alert and oriented x3. ASSESSMENT 1. Post catheterization hypotension appears mainly related to acute blood loss anemia from hematoma 2. Right femoral hematoma appears stable status post FemoStop 3. CAD with recent heart catheterization showing no significant obstructive d isease, prior history of LAD and RCA stenting 4. History of hypertension, on losartan and metoprolol at home 5. Acute blood loss anemia, hemoglobin 8.1 today PLAN Continue to hold aspirin however likely restart if no significant bleeding tomorrow. Continue to hold metoprolol and losartan. Right femoral site appears stable. Continue with low-dose dopamine. Decrease fluids to 40 mL/h as she is currently eating and drinking. Monitor hemoglobin and transfuse as needed. Past Medical History Past Medical History: Coronary Artery Disease (CAD), Cancer, Chest Pain / Angina, GERD/Reflux, Hyperlipidemia, Hypertension, Osteoarthritis (OA), Pneumonia, Thyroid Disorder Additional Past Medical History / Comment(s): See Dr Villarreal's H&P.. HX OF BREAST CANCER WITH CHEMO & RADIATION 2005, urinary leakage-wears a pad. History of Any Multi-Drug Resistant Organisms: None Reported Past Surgical History: Appendectomy, Bowel Resection, Breast Surgery, Heart Catheterization With Stent, Hysterectomy, Tonsillectomy Additional Past Surgical History / Comment(s): LEFT CAROTID ENDARTERECTOMY, BILATERAL CATARACTS, RIGHT MASTECTOMY, STENTS X2 (09/05/2002 & 02/20/2003). eye surgery for readjust the lens Past Anesthesia/Blood Transfusion Reactions: No Reported Reaction Date of Last Stent Placement:: 02/20/2003 Past Psychological History: No Psychological Hx Reported Smoking Status: Former smoker Past Alcohol Use History: Daily Additional Past Alcohol Use History / Comment(s): Quit smoking in 1992, smoked for 35 years, 2-2 1/2 PPD. DRINKS 1 GLASS OF WINE DAILY. Past Drug Use History: None Reported - Past Family History Father Family Medical History: Myocardial Infarction ([place]) Mother Family Medical History: Myocardial Infarction ([place]) Medications and Allergies Home Medications Medication Instructions Recorded Confirmed Type Aspirin [Adult Low Dose Aspirin EC] 81 mg PO DAILY 08/27/15 09/27/22 History Metoprolol Tartrate 25 mg PO DAILY 11/30/16 09/27/22 History Levothyroxine Sodium [Synthroid] 100 mcg PO DAILY 09/07/18 09/27/22 History Atorvastatin [Lipitor] 80 mg PO HS #90 tab 09/12/18 09/27/22 Rx Losartan Potassium [Cozaar] 100 mg PO DAILY 07/01/22 09/27/22 History Ubidecarenone [Co Q-10] 30 mg PO DAILY 07/01/22 09/27/22 History Vit C/E/Zn/Coppr/Lutein/Zeaxan 1 each PO BID 09/21/22 09/27/22 History [Preservision Areds 2 Softgel] Allergies Allergy/AdvReac Type Severity Reaction Status Date / Time Penicillins Allergy PASSED OUT Verified 09/21/22 12:39 Physical Exam Vitals: Vital Signs Temp Pulse Pulse Resp BP BP BP 09/28/22 07:00 80 19 83/46 09/28/22 06:30 89 19 87/58 09/28/22 06:00 100 13 85/51 09/28/22 05:30 92 21 75/46 09/28/22 05:00 93 19 90/55 09/28/22 04:30 110 H 23 81/53 09/28/22 04:00 97.8 F 103 H 18 88/51 09/28/22 03:30 112 H 5 L 101/66 09/28/22 03:00 107 H 17 98/74 09/28/22 02:30 101 H 18 86/57 09/28/22 02:00 96 10 L 120/71 09/28/22 01:30 98 25 H 92/65 09/28/22 01:00 90 6 L 99/62 09/28/22 00:30 87 19 91/55 09/28/22 00:00 97.7 F 85 9 L 96/49 09/27/22 23:30 78 8 L 93/64 09/27/22 23:07 75 0 L 93/64 09/27/22 23:00 76 5 L 97/62 09/27/22 22:30 77 10 L 96/54 09/27/22 22:00 74 12 90/51 09/27/22 21:30 70 0 L 97/52 09/27/22 21:00 68 8 L 92/54 09/27/22 20:30 67 18 103/54 09/27/22 20:00 97.6 F 71 9 L 79/61 09/27/22 19:30 70 29 H 96/46 09/27/22 19:00 67 31 H 99/50 09/27/22 18:40 65 14 99/50 09/27/22 18:30 65 23 109/67 09/27/22 18:20 67 13 109/67 09/27/22 18:16 67 22 09/27/22 18:00 80 16 101/50 09/27/22 17:49 64 16 117/55 09/27/22 17:36 64 14 114/57 09/27/22 17:28 60 16 103/54 09/27/22 16:58 62 16 97/64 09/27/22 16:50 66 14 89/54 09/27/22 16:26 62 14 115/54 09/27/22 15:41 66 16 97/52 09/27/22 14:41 60 16 88/52 09/27/22 14:11 88 16 94/50 09/27/22 13:11 68 16 97/57 09/27/22 12:56 75 16 105/62 09/27/22 12:40 70 16 81/49 09/27/22 09:20 97.9 F 84 16 142/76 184/101 Pulse Ox 09/28/22 07:00 95 09/28/22 06:30 93 L 09/28/22 06:00 96 09/28/22 05:30 95 09/28/22 05:00 90 L 09/28/22 04:30 94 L 09/28/22 04:00 89 L 09/28/22 03:30 94 L 09/28/22 03:00 95 09/28/22 02:30 96 09/28/22 02:00 97 09/28/22 01:30 98 09/28/22 01:00 99 09/28/22 00:30 99 09/28/22 00:00 99 09/27/22 23:30 99 09/27/22 23:07 98 09/27/22 23:00 99 09/27/22 22:30 99 09/27/22 22:00 98 09/27/22 21:30 99 09/27/22 21:00 99 09/27/22 20:30 98 09/27/22 20:00 98 09/27/22 19:30 90 L 09/27/22 19:00 98 09/27/22 18:40 97 09/27/22 18:30 96 09/27/22 18:20 100 09/27/22 18:16 09/27/22 18:00 94 L 09/27/22 17:49 100 09/27/22 17:36 09/27/22 17:28 100 09/27/22 16:58 09/27/22 16:50 09/27/22 16:26 09/27/22 15:41 09/27/22 14:41 09/27/22 14:11 96 09/27/22 13:11 96 09/27/22 12:56 98 09/27/22 12:40 97 09/27/22 09:20 97 Intake and Output 09/27/22 09/28/22 09/28/22 22:59 06:59 14:59 Intake Total 1700 800 100 Output Total 120 575 40 Balance 1580 225 60 Intake: IV 400 800 100 Sodium Chloride 0.9% 1, 400 800 100 000 ml @ 100 mls/hr IV . Q10H [facility] Rx#:[id number] Intake, IV Titration 1300 Amount Sodium Chloride 0.9% 1, 1300 000 ml @ 100 mls/hr IV . Q10H [facility] Rx#:[id number] Output: Urine 120 575 40 Other: Voiding Method Indwelling Catheter Indwelling Catheter # Voids 1 Weight 60.4 kg 65.4 kg Results 09/28/22 05:50 09/28/22 05:28 Coagulation 09/28/22 Range/Units 05:50 PT 11.7 (9.0-12.0) sec CBC 09/27/22 09/27/22 09/28/22 Range/Units 16:40 20:51 05:50 WBC 7.4 7.4 7.1 (3.8-10.6) k/uL RBC 3.21 L 3.04 L 2.88 L (3.80-5.40) m/uL Hgb 9.2 L 8.6 L 8.1 L (11.4-16.0) gm/dL Hct 26.9 L 25.7 L 24.7 L (34.0-46.0) % Plt Count 191 160 162 (150-450) k/uL Comprehensive Metabolic Panel 09/27/22 09/28/22 Range/Units 16:40 05:28 Sodium 130 L 133 L (137-145) mmol/L Potassium 4.1 4.0 (3.5-5.1) mmol/L Chloride 103 109 H (98-107) mmol/L Carbon Dioxide 19 L 19 L (22-30) mmol/L BUN 22 H 18 H (7-17) mg/dL Creatinine 0.58 0.56 (0.52-1.04) mg/dL Glucose 174 H 93 (74-99) mg/dL Calcium 8.0 L 8.1 L (8.4-10.2) mg/dL Current Medications Generic Name Dose Route Start Last Admin Trade Name Freq PRN Reason Stop Dose Admin Alprazolam 0.25 mg 09/27/22 06:08 Alprazolam 0.25 Mg Tab PO 10/27/22 06:09 Q6HR PRN Mild Anxiety Alprazolam 0.5 mg 09/27/22 06:08 Alprazolam 0.5 Mg Tab PO 10/27/22 06:09 Q6HR PRN Moderate Anxiety Sodium Chloride 1,000 ml/ IV 1,000 mls @ 60.328 mls/hr 09/27/22 06:08 09/28/22 06:59 Solution IV 10/27/22 06:09 Not Given .[id number] [facility] 1 ML/KG/HR Dopamine HCl/Dextrose 800 mg/ 250 mls @ 2.265 mls/hr 09/27/22 21:15 09/27/22 21:47 IV Solution IV 2.265 mls/hr .Q24H [facility] Administration 2 MCG/KG/MIN Naloxone HCl 0.2 mg 09/27/22 18:37 Naloxone 0.4 Mg/Ml 1 Ml Vial IV Q2M PRN Opioid Reversal Nitroglycerin 0.4 mg 09/27/22 06:08 Nitroglycerin Sl Tabs 0.4 Mg Tab SUBLINGUAL 10/27/22 06:09 Q5M PRN Chest Pain Pantoprazole Sodium 40 mg 09/28/22 09:00 Pantoprazole 40 Mg/10 Ml Vial IV DAILY [facility] Intake and Output 09/27/22 09/28/22 09/28/22 22:59 06:59 14:59 Intake Total 1700 800 100 Output Total 120 575 40 Balance 1580 225 60 Intake: IV 400 800 100 Sodium Chloride 0.9% 1, 400 800 100 000 ml @ 100 mls/hr IV . Q10H [facility] Rx#:[id number] Intake, IV Titration 1300 Amount Sodium Chloride 0.9% 1, 1300 000 ml @ 100 mls/hr IV . Q10H [facility] Rx#:[id number] Output: Urine 120 575 40 Other: Voiding Method Indwelling Catheter Indwelling Catheter # Voids 1 Weight 60.4 kg 65.4 kg 09/28/22 05:50 09/28/22 05:28
[2022-09-28] MEDS: PANTOPRAZOLE 40 MG/10 ML VIAL IV SCH (08:40)
[2022-09-28 15:06] LABS: HCT 23.8 % (34.0-46.0); HGB 7.9 gm/dL (11.4-16.0); MCH 27.8 pg (25.0-35.0); MCHC 33.1 g/dL (31.0-37.0); MCV 84.1 fL (80.0-100.0); Mean Platelet Volume 7.8; Platelet Count 149 k/uL (150-450); RBC 2.83 m/uL (3.80-5.40); RDW 14.3 % (11.5-15.5); WBC 6.1 k/uL (3.8-10.6)
[2022-09-28] MEDS ORDERED: MAGNESIUM SULFATE-D5W PMX 1 GM in DEXTROSE/WATER 1 100ML.BAG IVPB ONE (19:42)
--- NOTE | 2022-09-28 20:14 | P.HPIM ---
History of Present Illness H&P Date: 09/28/22 Chief Complaint: Postoperative hemorrhage, hypovolemic shock This is a pleasant 86-year-old female with past medical history of CAD with cardiac stenting, hypertension, hyperlipidemia, hypothyroidism, former nicotine dependence, history of breast cancer with chemoradiation 2005, right mastectomy osteoarthritis, gastroesophageal reflux disease, bilateral cataracts underwent elective cardiac catheterization yesterday, with symptomatic postop bleeding, lightheadedness and hypotension. Refer to cardiology procedure note and progress note for specifics. CT of pelvis reported no retroperitoneal hemorrhage ,right lower anterior abdominal wall/inguinal hematoma measuring ap proximately 6.7 x 2.8 x 6.7 cm. No evidence for active extravasation, however evaluation Limited given noncontrast. Chest x-ray reporting no acute cardiopulmonary disease process, COPD changes. Denies chest pain, palpitations or shortness of breath. Denies abdominal tenderness. Maintaining O2 sats in the 90s on room air. Mild tachycardia.Afebrile, normal WBC. Maintained on IV fluid hydration ,dopamine, blood pressure soft currently in the 80s, maps of high 50s to 60s. Hemoglobin decreased to 8.1, platelets 162, BUN 18, creatinine 0.56. Potassium 4 ,Magnesium 1.7. Review of Systems ROS Statement: Those systems with pertinent positive or pertinent negative responses have been documented in the HPI. ROS Other: All systems not noted in ROS Statement are negative. Past Medical History Past Medical History: Coronary Artery Disease (CAD), Cancer, Chest Pain / Angina, GERD/Reflux, Hyperlipidemia, Hypertension, Osteoarthritis (OA), Pneumonia, Thyroid Disorder Additional Past Medical History / Comment(s): See Dr Villarreal's H&P.. HX OF BREAST CANCER WITH CHEMO & RADIATION 2005, urinary leakage-wears a pad. History of Any Multi-Drug Resistant Organisms: None Reported Past Surgical History: Appendectomy, Bowel Resection, Breast Surgery, Heart Catheterization With Stent, Hysterectomy, Tonsillectomy Additional Past Surgical History / Comment(s): LEFT CAROTID ENDARTERECTOMY, BILATERAL CATARACTS, RIGHT MASTECTOMY, STENTS X2 (09/05/2002 & 02/20/2003). eye surgery for readjust the lens Past Anesthesia/Blood Transfusion Reactions: No Reported Reaction Date of Last Stent Placement:: 02/20/2003 Past Psychological History: No Psychological Hx Reported Smoking Status: Former smoker Past Alcohol Use History: Daily Additional Past Alcohol Use History / Comment(s): Quit smoking in 1992, smoked for 35 years, 2-2 1/2 PPD. DRINKS 1 GLASS OF WINE DAILY. Past Drug Use History: None Reported - Past Family History Father Family Medical History: Myocardial Infarction ([place]) Mother Family Medical History: Myocardial Infarction ([place]) Medications and Allergies Home Medications Medication Instructions Recorded Confirmed Type Aspirin [Adult Low Dose Aspirin EC] 81 mg PO DAILY 08/27/15 09/27/22 History Metoprolol Tartrate 25 mg PO DAILY 11/30/16 09/27/22 History Levothyroxine Sodium [Synthroid] 100 mcg PO DAILY 09/07/18 09/27/22 History Atorvastatin [Lipitor] 80 mg PO HS #90 tab 09/12/18 09/27/22 Rx Losartan Potassium [Cozaar] 100 mg PO DAILY 07/01/22 09/27/22 History Ubidecarenone [Co Q-10] 30 mg PO DAILY 07/01/22 09/27/22 History Vit C/E/Zn/Coppr/Lutein/Zeaxan 1 each PO BID 09/21/22 09/27/22 History [Preservision Areds 2 Softgel] Allergies Allergy/AdvReac Type Severity Reaction Status Date / Time Penicillins Allergy PASSED OUT Verified 09/21/22 12:39 Physical Exam Vitals: Vital Signs Temp Pulse Pulse Resp BP BP BP 09/28/22 11:30 96 12 106/66 09/28/22 11:00 90 19 102/72 09/28/22 10:30 95 15 113/72 09/28/22 10:00 87 21 122/81 09/28/22 09:30 110 H 12 88/55 09/28/22 09:00 87 12 97/61 09/28/22 08:30 104 H 15 86/48 09/28/22 08:00 97.6 F 98 16 82/47 09/28/22 07:30 97 12 88/55 09/28/22 07:00 80 19 83/46 09/28/22 06:30 89 19 87/58 09/28/22 06:00 100 13 85/51 09/28/22 05:30 92 21 75/46 09/28/22 05:00 93 19 90/55 09/28/22 04:30 110 H 23 81/53 09/28/22 04:00 97.8 F 103 H 18 88/51 09/28/22 03:30 112 H 5 L 101/66 09/28/22 03:00 107 H 17 98/74 09/28/22 02:30 101 H 18 86/57 09/28/22 02:00 96 10 L 120/71 09/28/22 01:30 98 25 H 92/65 09/28/22 01:00 90 6 L 99/62 09/28/22 00:30 87 19 91/55 09/28/22 00:00 97.7 F 85 9 L 96/49 09/27/22 23:30 78 8 L 93/64 09/27/22 23:07 75 0 L 93/64 09/27/22 23:00 76 5 L 97/62 09/27/22 22:30 77 10 L 96/54 09/27/22 22:00 74 12 90/51 09/27/22 21:30 70 0 L 97/52 09/27/22 21:00 68 8 L 92/54 09/27/22 20:30 67 18 103/54 09/27/22 20:00 97.6 F 71 9 L 79/61 09/27/22 19:30 70 29 H 96/46 09/27/22 19:00 67 31 H 99/50 09/27/22 18:40 65 14 99/50 09/27/22 18:30 65 23 109/67 09/27/22 18:20 67 13 109/67 09/27/22 18:16 67 22 09/27/22 18:00 80 16 101/50 09/27/22 17:49 64 16 117/55 09/27/22 17:36 64 14 114/57 09/27/22 17:28 60 16 103/54 09/27/22 16:58 62 16 97/64 09/27/22 16:50 66 14 89/54 09/27/22 16:26 62 14 115/54 09/27/22 15:41 66 16 97/52 09/27/22 14:41 60 16 88/52 09/27/22 14:11 88 16 94/50 09/27/22 13:11 68 16 97/57 09/27/22 12:56 75 16 105/62 09/27/22 12:40 70 16 81/49 Pulse Ox 04/26/23 11:30 97 09/28/22 11:00 99 09/28/22 10:30 98 09/28/22 10:00 98 09/28/22 09:30 97 09/28/22 09:00 95 09/28/22 08:30 97 09/28/22 08:00 90 L 09/28/22 07:30 93 L 09/28/22 07:00 95 09/28/22 06:30 93 L 09/28/22 06:00 96 09/28/22 05:30 95 09/28/22 05:00 90 L 09/28/22 04:30 94 L 09/28/22 04:00 89 L 09/28/22 03:30 94 L 09/28/22 03:00 95 09/28/22 02:30 96 09/28/22 02:00 97 09/28/22 01:30 98 09/28/22 01:00 99 09/28/22 00:30 99 09/28/22 00:00 99 09/27/22 23:30 99 09/27/22 23:07 98 09/27/22 23:00 99 09/27/22 22:30 99 09/27/22 22:00 98 09/27/22 21:30 99 09/27/22 21:00 99 09/27/22 20:30 98 09/27/22 20:00 98 09/27/22 19:30 90 L 09/27/22 19:00 98 09/27/22 18:40 97 09/27/22 18:30 96 09/27/22 18:20 100 09/27/22 18:16 09/27/22 18:00 94 L 09/27/22 17:49 100 09/27/22 17:36 09/27/22 17:28 100 09/27/22 16:58 09/27/22 16:50 09/27/22 16:26 09/27/22 15:41 09/27/22 14:41 09/27/22 14:11 96 09/27/22 13:11 96 09/27/22 12:56 98 09/27/22 12:40 97 Intake and Output 09/27/22 09/28/22 09/28/22 22:59 06:59 14:59 Intake Total 1700 800 500 Output Total 120 575 365 Balance 1580 225 135 Intake: IV 400 800 500 Sodium Chloride 0.9% 1, 400 800 500 000 ml @ 100 mls/hr IV . Q10H [facility] Rx#:[id number] Intake, IV Titration 1300 Amount Sodium Chloride 0.9% 1, 1300 000 ml @ 100 mls/hr IV . Q10H [facility] Rx#:[id number] Output: Urine 120 575 365 Other: Voiding Method Indwelling Catheter Indwelling Catheter Indwelling Catheter # Voids 1 Weight 60.4 kg 65.4 kg PHYSICAL EXAM: VITAL SIGNS: As above GENERAL: Sitting up in bed, no acute distress HEENT: Conjunctivae normal. eyes normal. NECK: Supple, No JVD. No thyroid enlargement. No LNs CARDIOVASCULAR: S1, S2 regular.. No murmur RESPIRATION: Unlabored Breath sounds diminished in the bases. No rhonchi or crackles. No bronchial breathing. ABDOMEN: Soft, nondistended, nontender . Groin sites soft ,clean dry and intact, nontender. No guarding. no masses palpable. No ascites, No hepatosplenomegaly.Bowel sounds heard. LEGS: No edema. no swelling, PSYCHIATRY: Alert and oriented X3, mood and affect normal. NERVOUS SYSTEM: Cranial N 2-12 grossly normal. No focal deficits. Strength and sensation grossly intact.. Skin: Warm and dry, no rash Results CBC & Chem 7: 09/28/22 14:25 09/28/22 05:28 Labs: Abnormal Lab Results - Last 24 Hours (Table) 09/27/22 09/27/22 09/27/22 Range/Units 16:40 16:40 18:19 RBC 3.21 L (3.80-5.40) m/uL Hgb 9.2 L (11.4-16.0) gm/dL Hct 26.9 L (34.0-46.0) % Lymphocytes # (1.0-4.8) k/uL Sodium 130 L (137-145) mmol/L Chloride (98-107) mmol/L Carbon Dioxide 19 L (22-30) mmol/L BUN 22 H (7-17) mg/dL Glucose 174 H (74-99) mg/dL POC Glucose (mg/dL) 137 H (70-110) mg/dL Calcium 8.0 L (8.4-10.2) mg/dL 09/27/22 09/28/22 09/28/22 Range/Units 20:51 05:28 05:50 RBC 3.04 L 2.88 L (3.80-5.40) m/uL Hgb 8.6 L 8.1 L (11.4-16.0) gm/dL Hct 25.7 L 24.7 L (34.0-46.0) % Lymphocytes # 0.9 L (1.0-4.8) k/uL Sodium 133 L (137-145) mmol/L Chloride 109 H (98-107) mmol/L Carbon Dioxide 19 L (22-30) mmol/L BUN 18 H (7-17) mg/dL Glucose (74-99) mg/dL POC Glucose (mg/dL) (70-110) mg/dL Calcium 8.1 L (8.4-10.2) mg/dL Thrombosis Risk Factor Assmnt - Choose All That Apply Each Factor Represents 1 point: History of prior major surgery (<1month), Medical pt on bed rest, Oral contraceptives or hormone replacement therapy Each Risk Factor Represents 2 Points: Major surgery Each Risk Factor Represents 3 Points: Age 75 years or older Thrombosis Risk Factor Assessment Total Risk Factor Score: 8 Thrombosis Risk Factor Assessment Level: High Risk Assessment and Plan Assessment: Acute blood loss anemia status post cardiac catheterization secondary to hematoma with hypovolemic shock, currently on dopamine and IV fluids Right femoral hematoma CAD with recent heart catheterization reporting no significant obstructive disease, in a patient with prior history of stenting of the LAD and RCA Acute hypoxic respiratory failure secondary to the above, improving History of hypertension Hyperlipidemia History of breast cancer with right mastectomy Plan: Continue on current medication regime ,monitoring and symptomatic treatment. Maintain IV fluid hydration, dopamine. Close monitoring of hemo globin with serial hemoglobins. ICU management as per clinical asst/dopamine as per cardiology. The impression and plan of care has been dictated as directed. : I performed a history and examination of this patient, discussed the same with the dictator. I agree with the dictator's note ,documented as a scribe. Any additional findings or plans will be noted.
[2022-09-28] MEDS ORDERED: FUROSEMIDE 10 MG/ML 4 ML VIAL IV STA (22:19)
[2022-09-28] MEDS ORDERED: ONDANSETRON 4 MG/2 ML VIAL IVP PRN (22:27)
[2022-09-28] MEDS: METOPROLOL TARTRATE 25 MG TAB PO SCH (22:32)
--- NOTE | 2022-09-28 22:42 | XR ---
EXAM: XR Chest, 1 View CLINICAL HISTORY: SOB TECHNIQUE: Frontal view of the chest. COMPARISON: 02/20/2018 FINDINGS: Lungs: Subsegmental somewhat nodular opacities at the left lung base noted. Lungs are otherwise clear. The pulmonary vasculature appears somewhat equalized. Pleural space: Unremarkable. No pneumothorax. No large pleural effusion. Heart: Stable cardiomegaly. Mediastinum: The medial cell contours are stable. Similar atherosclerotic calcification aortic arch. The trachea is midline. Bones/joints: Unremarkable. Soft tissues: Similar surgical sutures noted near the right axilla. Tubes, lines and devices: There is a implanted cardiac monitoring device, new from the previous exam. IMPRESSION: 1. Subsegmental somewhat nodular opacities at the left lung base noted. Differential consideration includes left basilar asymmetric edema or subtle infection. The pulmonary vasculature appears somewhat equalized. No radiographic evidence for florid CHF. No pleural effusion or pneumothorax. 2. Stable cardiomegaly.
[2022-09-28] MEDS ORDERED: IPRATROPIUM-ALBUTEROL 3 ML NEB INHALATION PRN (23:00)
[2022-09-29 03:54] LABS: Basophils % (A) 0 %; Eosinophils # (A) 0.1 k/uL (0-0.7); Eosinophils % (A) 1 %; HCT 23.8 % (34.0-46.0); HGB 7.8 gm/dL (11.4-16.0); Lymphocytes # (A) 1.2 k/uL (1.0-4.8); Lymphocytes % (A) 16 %; MCH 27.9 pg (25.0-35.0); MCHC 32.9 g/dL (31.0-37.0); MCV 84.9 fL (80.0-100.0); Mean Platelet Volume 7.4; Monocytes # (A) 0.3 k/uL (0-1.0); Monocytes % (A) 4 %; Neutrophils # (A) 5.8 k/uL (1.3-7.7); Neutrophils % (A) 77 %; Platelet Count 159 k/uL (150-450); RBC 2.81 m/uL (3.80-5.40); RDW 14.3 % (11.5-15.5); WBC 7.5 k/uL (3.8-10.6)
[2022-09-29 04:20] LABS: African American GFR (CKD) >90 (>60 ml/min/1.73 sqM); Anion Gap 6 mmol/L; Blood Urea Nitrogen 15 mg/dL (7-17); Calcium 8.2 mg/dL (8.4-10.2); Carbon Dioxide 22 mmol/L (22-30); Chloride 103 mmol/L (98-107); Glucose 122 mg/dL (74-99); Magnesium 1.8 mg/dL (1.6-2.3); Non-African American GFR(CKD) 85 (>60 ml/min/1.73 sqM); Potassium 3.9 mmol/L (3.5-5.1); Sodium 131 mmol/L (137-145)
[2022-09-29] MEDS ORDERED: MAGNESIUM SULFATE-D5W PMX 1 GM in DEXTROSE/WATER 1 100ML.BAG IVPB ONE (06:17)
[2022-09-29] MEDS: POTASSIUM CHLORIDE 10 MEQ in WATER FOR INJECTION 1 100ML.BAG IVPB SCH ×2 (07:04→08:27)
[2022-09-29] MEDS: LEVOTHYROXINE 100 MCG TAB PO SCH (07:04)
[2022-09-29] MEDS: IPRATROPIUM-ALBUTEROL 3 ML NEB INHALATION SCH ×4 (08:05→19:43)
--- NOTE | 2022-09-29 08:19 | P.PN ---
Subjective HISTORY OF PRESENTING ILLNESS Patient is a pleasant 86-year-old female history of hypertension, hyperlipidemia, breast cancer with prior mastectomy, CAD status post prior RCA and LAD stenting. She has been having it atypical shortness breath and chest tightness over the last few months and therefore underwent elective heart catheterization yesterday. There was difficulty obtaining axis with right radial access unsuccessful and right femoral axis obtained however unable to advance sheath and had some amount of bleeding with pressure held in the right femoral site. Eventually catheterization was able to be at pain through the left femoral site. Postoperatively she became lightheaded and noted to have hypotension. CT abdomen and pelvis showed right abdominal wall/inguinal hematoma measuring approximate 6 x 6 cm. There is no active extravasation. A FemoStop was placed and currently has been removed with no significant increase in hematoma. She is on dopamine at 2 mics per kilogram per minute and blood pressure still borderline in the 80s over 50s. She states she feels better currently. She is receiving normal saline at 100 mL per hour. She denies any chest pain or pressure or shortness breath currently. Hemoglobin this morning 8.1, down from 9.2 yesterday. Creatinine stable at 0.56. 09/29 Patient seen and examined. Patient has improved blood pressure and denies any chest pain or pressure. She is however having shortness breath worsened last night and therefore given Lasix with improvement. Receiving a breathing treatment currently. Blood pressure somewhat elevated 150s over 60s. Hemoglobin 7.8. PHYSICAL EXAMINATION Vital signs reviewed. CONSTITUTIONAL: No apparent distress. HEENT: Head is normocephalic. Pupils are equal, round. Sclerae anicteric. Mucous membranes of the mouth are moist. No JVD. No carotid bruit. CHEST EXAMINATION: Lungs are clear to auscultation. No chest wall tenderness is noted on palpation or with deep breathing. HEART EXAMINATION: Regular rate and rhythm. S1, S2 heard. No murmurs, gallops or rub. ABDOMEN: Soft, nontender. Positive bowel sounds. EXTREMITIES: 2+ peripheral pulses, no lower extremity edema and no calf tenderness. NEUROLOGIC EXAMINATION: Patient is awake, alert and oriented x3. ASSESSMENT 1. Post catheterization hypotension appears mainly related to acute blood loss anemia from hematoma 2. Right femoral hematoma appears stable status post FemoStop 3. CAD with recent heart catheterization showing no significant obstructive disease, prior history of LAD and RCA stenting 4. History of hypertension, on losartan and metoprolol at home 5. Acute blood loss anemia, hemoglobin 7.8 today PLAN Patient with some volume overloaded and restarted on Lasix as well as home losartan and metoprolol. Appears to be doing somewhat better today. Monitor hemoglobin closely with drop to 7.8. No need for transfusion currently. Right femoral site appears stable and restart aspirin given significant history of CAD. Hopeful discharge home tomorrow if remains stable and hemoglobin stable. Objective - Vital Signs Vital signs: Vital Signs Temp 98 F 09/29/22 04:00 Pulse 71 09/29/22 08:06 Resp 19 09/29/22 07:00 BP 143/60 09/29/22 07:00 Pulse Ox 97 09/29/22 07:00 FiO2 Intake & Output 09/28/22 09/29/22 09/29/22 18:59 06:59 18:59 Intake Total 1600 180 Output Total 715 1200 400 Balance 885 -1020 -400 Weight 68.6 kg Intake: IV 1600 180 Sodium Chloride 0.9% 1, 1600 180 000 ml @ 100 mls/hr IV . Q[facility]H [facility] Rx#:[id number] Output: Urine 715 1200 400 Other: Voiding Method Indwelling Catheter External Catheter # Voids 1 - Labs CBC & Chem 7: 09/29/22 03:24 09/29/22 03:24 Labs: Abnormal Lab Results - Last 24 Hours (Table) 09/28/22 09/29/22 09/29/22 Range/Units 14:25 03:24 03:24 RBC 2.83 L 2.81 L (3.80-5.40) m/uL Hgb 7.9 L 7.8 L (11.4-16.0) gm/dL Hct 23.8 L 23.8 L (34.0-46.0) % Plt Count 149 L (150-450) k/uL Sodium 131 L (137-145) mmol/L Glucose 122 H (74-99) mg/dL Calcium 8.2 L (8.4-10.2) mg/dL
[2022-09-29] MEDS: LOSARTAN 50 MG TAB PO SCH (08:26)
[2022-09-29] MEDS: PANTOPRAZOLE 40 MG/10 ML VIAL IV SCH (08:26)
[2022-09-29] MEDS: METOPROLOL TARTRATE 25 MG TAB PO SCH (08:26)
[2022-09-29] MEDS: ASPIRIN 81 MG PO SCH (08:26)
[2022-09-29] MEDS: FUROSEMIDE 40 MG TAB PO SCH ×2 (08:26→15:05)
[2022-09-29] MEDS: SODIUM CHLORIDE 0.9% 1,000 ML in EMPTY BAG 1 BAG IV SCH (08:27)
[2022-09-29 08:35] LABS: Basophils % (A) 0 %; Eosinophils # (A) 0.1 k/uL (0-0.7); Eosinophils % (A) 2 %; HCT 25.6 % (34.0-46.0); HGB 8.2 gm/dL (11.4-16.0); Lymphocytes # (A) 1.2 k/uL (1.0-4.8); Lymphocytes % (A) 19 %; MCH 28.2 pg (25.0-35.0); MCHC 32.1 g/dL (31.0-37.0); MCV 87.8 fL (80.0-100.0); Mean Platelet Volume 7.1; Monocytes # (A) 0.3 k/uL (0-1.0); Monocytes % (A) 5 %; Neutrophils # (A) 4.5 k/uL (1.3-7.7); Neutrophils % (A) 72 %; Platelet Count 161 k/uL (150-450); RBC 2.92 m/uL (3.80-5.40); WBC 6.3 k/uL (3.8-10.6)
[2022-09-29] MEDS ORDERED: POTASSIUM CHLORIDE ER 20 MEQ TAB.ER PO ONE (09:15)
[2022-09-29] MEDS: DEXTROSE/WATER 1 250ML.BAG with DOPamine DRIP 800 MG IV SCH (10:42)
[2022-09-29] MEDS ORDERED: amLODIPine 5 MG TAB PO STA (11:56)
--- NOTE | 2022-09-29 11:59 | P.PN ---
Subjective Progress Note Date: 09/29/22 Principal diagnosis: Acute blood loss anemia , hemorrhagic shock. I'm seeing this patient in consultation today 09/28/2022 for ICU management. Patient is a 86-year-old female with past medical history of coronary artery disease with previous stenting of the RCA and LAD, hypertension, hyperlipidemia, breast cancer with previous right mastectomy. The patient had been reporting exertional shortness of breath and chest tightness over the past couple months. Patient was admitted yesterday for elective cardiac catheterization. Apparently, vascular access was difficult to obtain. Attempts were made at the right radial, right femoral, and ultimately the left femoral approach was used. Postoperatively, the patient developed abdominal discomfort and had a near syncopal event. Upon further investigation, a large amount of blood was found around the rectovaginal area. The patient was given 2000 units of heparin during the procedure. An A-team was initiated for hypotension, and the patient was transferred to intensive care unit. The patient was stabilized and taken do wn for an abdominal pelvis CT without contrast which showed no retroperitoneal hemorrhage. There was a right lower anterior abdominal wall/inguinal hematoma measuring 6.7 x 2.8 x 6.7 cm. No evidence of active extravasation. No further reports of bleeding per RN. Patient's hematoma site was reduced and the patient currently has a FemoStop with 40 mmhg over the right femoral site. Site appears soft and non-ecchymotic. Patient is currently resting in bed, on 4 L nasal cannula, in no acute distress. She is oxygenating at 98-99%, and her FiO2 could be weaned down. She denies any abdominal pain, nausea, vomiting, diarrhea. No vaginal bleeding reported. Patient was started on dopamine infusion which is infusing at 2 mics per kilogram per minute. Blood pressure is currently normotensive. Patient was fluid resuscitated intraoperatively, and has normal saline infusing at 100 mL per hour. Patient has not required any blood products. Patient's most recent hemoglobin is 8.6 down from 9.2 earlier, hematocrit 25.7. Patient's BMP on admission shows a sodium of 130, potassium 4.1, chloride 103, serum CO2 19, BP 122, creatinine 0.58, glucose 174. Vital signs are currently stable. Reevaluated today on09/29/2022, patient remains in the ICU, she is presently on overflow. Patient is doing fairly well, relatively asymptomatic, hardly any symptoms. She is hemodynamically stable, did not require any transfusion. She is not requiring presently any pressors. Hemoglobin today is 8.2, obviously no evidence of active bleeding. Overall the patient is doing quite well, and I plan to transfer the patient out of the ICU could be considered for discharge planning if cleared by cardiology to go home today. Objective - Vital Signs Vital signs: Vital Signs Temp 97.5 F L 09/29/22 09:59 Pulse 72 09/29/22 11:41 Resp 20 09/29/22 09:59 BP 168/90 09/29/22 09:59 Pulse Ox 99 09/29/22 09:59 FiO2 Intake & Output 09/28/22 09/29/22 09/29/22 18:59 06:59 18:59 Intake Total 1600 180 100 Output Total 715 1200 400 Balance 885 -1020 -300 Weight 68.6 kg Intake: IV 1600 180 Sodium Chloride 0.9% 1, 1600 180 000 ml @ 100 mls/hr IV . Q10H [facility] Rx#:[id number] Intake, IV Titration 100 Amount Potassium Chloride 10 meq 100 In Water For Injection 1 100ml.bag @ 100 mls/hr IVPB Q1H [facility] Rx#: [id number] Output: Urine 715 1200 400 Other: Voiding Method Indwelling Catheter External Catheter Toilet # Voids 1 1 - Exam Physical Exam: Revealed 86-year-old female in no distress. Head: Atraumatic, normocephalic. HEENT:[Neck is supple.] [No neck masses.] [No thyromegaly.] [No JVD.] Chest: [Clear throughout, no crackles, no rhonchi, no wheezes.] Cardiac Exam: [Normal S1 and S2, no S3 gallop, no murmur.] Abdomen: [Soft, nontender, no megaly, no rebound, no guarding, normal bowel sounds.] Extremities: [No clubbing, no edema, no cyanosis.] Neurological Exam: [No focal neurologic deficit.] Alert oriented 3. Psychiatric: Normal mood affect and normal mental status examination. Skin: No rashes. - Labs CBC & Chem 7: 09/29/22 08:10 09/29/22 03:24 Labs: Abnormal Lab Results - Last 24 Hours (Table) 09/28/22 09/29/22 09/29/22 Range/Units 14:25 03:24 03:24 RBC 2.83 L 2.81 L (3.80-5.40) m/uL Hgb 7.9 L 7.8 L (11.4-16.0) gm/dL Hct 23.8 L 23.8 L (34.0-46.0) % Plt Count 149 L (150-450) k/uL Sodium 131 L (137-145) mmol/L Glucose 122 H (74-99) mg/dL Calcium 8.2 L (8.4-10.2) mg/dL 09/29/22 Range/Units 08:10 RBC 2.92 L (3.80-5.40) m/uL Hgb 8.2 L (11.4-16.0) gm/dL Hct 25.6 L (34.0-46.0) % Plt Count (150-450) k/uL Sodium (137-145) mmol/L Glucose (74-99) mg/dL Calcium (8.4-10.2) mg/dL Assessment and Plan Assessment: Impression: Acute blood loss anemia, post catheterization hypotension and hemorrhagic shock secondary to large hematoma following cardiac catheterization Right femoral hematoma Coronary artery disease, recent cardiac catheterization showed no significant occlusive disease History of hypertension, under control. Dyslipidemia History of breast cancer and previous right sided mastectomy Recommendation: Will clear the patient to be transferred out of the ICU to a monitor bed on selective We will clear the patient for discharge if cleared by cardiology on the case. We will sign off and see the patient on when necessary basis. Time with Patient: Less than 30
--- NOTE | 2022-09-29 12:33 | P.PN ---
Subjective Progress Note Date: 09/29/22 H&P Date: 09/28/22 Chief Complaint: Postoperative hemorrhage, hypovolemic shock This is a pleasant 86-year-old female with past medical history of CAD with c ardiac stenting, hypertension, hyperlipidemia, hypothyroidism, former nicotine dependence, history of breast cancer with chemoradiation 2005, right mastectomy osteoarthritis, gastroesophageal reflux disease, bilateral cataracts underwent elective cardiac catheterization yesterday, with symptomatic postop bleeding, lightheadedness and hypotension. Refer to cardiology procedure note and progress note for specifics. CT of pelvis reported no retroperitoneal hemorrhage ,right lower anterior abdominal wall/inguinal hematoma measuring approximately 6.7 x 2.8 x 6.7 cm. No evidence for active extravasation, however evaluation Limited given noncontrast. Chest x-ray reporting no acute cardiopulmonary disease process, COPD changes. Denies chest pain, palpitations or shortness of breath. Denies abdominal tenderness. Maintaining O2 sats in the 90s on room air. Mild tachycardia.Afebrile, normal WBC. Maintained on IV fluid hydration ,dopamine, blood pressure soft currently in the 80s, maps of high 50s to 60s. Hemoglobin decreased to 8.1, platelets 162, BUN 18, creatinine 0.56. Potassium 4 ,Magnesium 1.7. 09/29/2022 prior to catheterization, hemoglobin 11.4, hemoglobin currently decreased to 7.8, platelets 159. No evidence of active bleeding. Tachycardia during the night, resolved. Shortness of breath during the night, received Lasix with significant clinical improvement. Diuresing well on Lasix with 24- hour I&O reflecting a negative fluid balance. Dopamine discontinued last night as well. Blood pressure elevated this morning into the 150s. Metoprolol, losartan resumed as per cardiology .Maintaining O2 sats in the high 90s on room air. Potassium 3.9, Magnesium 1.8. Renal function stable. Denies any chest pain, palpitations or shortness of breath. Denies any lightheadedness, dizziness or focal deficits. Denies any groin or abdominal pain. Objective - Vital Signs Vital signs: Vital Signs Temp 97.5 F L 09/29/22 09:59 Pulse 72 09/29/22 11:41 Resp 20 09/29/22 09:59 BP 168/90 09/29/22 09:59 Pulse Ox 99 09/29/22 09:59 FiO2 Intake & Output 09/28/22 09/29/22 09/29/22 18:59 06:59 18:59 Intake Total 1600 180 100 Output Total 715 1200 400 Balance 885 -1020 -300 Weight 68.6 kg Intake: IV 1600 180 Sodium Chloride 0.9% 1, 1600 180 000 ml @ 100 mls/hr IV . Q10H [facility] Rx#:[id number] Intake, IV Titration 100 Amount Potassium Chloride 10 meq 100 In Water For Injection 1 100ml.bag @ 100 mls/hr IVPB Q1H [facility] Rx#: [id number] Output: Urine 715 1200 400 Other: Voiding Method Indwelling Catheter External Catheter Toilet # Voids 1 1 - Exam PHYSICAL EXAM: VITAL SIGNS: As above GENERAL: Sitting up in bed, no acute distress HEENT: Conjunctivae normal. eyes normal. NECK: Supple, No JVD. No thyroid enlargement. No LNs CARDIOVASCULAR: S1, S2 regular.. No murmur RESPIRATION: Unlabored Breath sounds diminished in the bases. No rhonchi or crackles. No bronchial breathing. ABDOMEN: Soft, nondistended, nontender. Groin sites soft ,clean dry and intact, nontender. No guarding. no masses palpable. No ascites, No hepato splenomegaly.Bowel sounds heard. LEGS: No edema. no swelling. PSYCHIATRY: Alert and oriented X3, mood and affect normal. NERVOUS SYSTEM: Cranial N 2-12 grossly normal. No focal deficits. Strength and sensation grossly intact. Skin: Warm and dry, no rash. - Labs CBC & Chem 7: 09/29/22 08:10 09/29/22 03:24 Labs: Abnormal Lab Results - Last 24 Hours (Table) 09/28/22 09/29/22 09/29/22 Range/Units 14:25 03:24 03:24 RBC 2.83 L 2.81 L (3.80-5.40) m/uL Hgb 7.9 L 7.8 L (11.4-16.0) gm/dL Hct 23.8 L 23.8 L (34.0-46.0) % Plt Count 149 L (150-450) k/uL Sodium 131 L (137-145) mmol/L Glucose 122 H (74-99) mg/dL Calcium 8.2 L (8.4-10.2) mg/dL 09/29/22 Range/Units 08:10 RBC 2.92 L (3.80-5.40) m/uL Hgb 8.2 L (11.4-16.0) gm/dL Hct 25.6 L (34.0-46.0) % Plt Count (150-450) k/uL Sodium (137-145) mmol/L Glucose (74-99) mg/dL Calcium (8.4-10.2) mg/dL Assessment and Plan Assessment: Acute blood loss anemia status post cardiac catheterization secondary to hematoma with hypovolemic shock, status post dopamine. Right femoral hematoma CAD with recent heart catheterization reporting no significant obstructive disease, in a patient with prior history of stenting of the LAD and RCA Acute hypoxic respiratory failure secondary to the above, improving History of hypertension Hyperlipidemia History of breast cancer with right mastectomy Plan: Continue on current medication regime ,monitoring and symptomatic treatment. Close monitoring of hemoglobin. Significant clinical improvement. Cardiology discussing transferring patient out of ICU. The impression and plan of care has been dictated as directed. : I performed a history and examination of this patient, discussed the same with the dictator. I agree with the dictator's note ,documented as a scribe. Any additional findings or plans will be noted.
[2022-09-29] MEDS ORDERED: ATORVASTATIN 80 MG TAB PO SCH (21:00)
[2022-09-30] MEDS: SODIUM CHLORIDE 0.9% 1,000 ML in EMPTY BAG 1 BAG IV SCH (01:34)
[2022-09-30] MEDS: LEVOTHYROXINE 100 MCG TAB PO SCH (06:07)
[2022-09-30] MEDS ORDERED: PANTOPRAZOLE 40 MG TABLET PO SCH (07:30)
[2022-09-30] MEDS: ASPIRIN 81 MG PO SCH (08:29)
[2022-09-30] MEDS: LOSARTAN 50 MG TAB PO SCH (08:29)
[2022-09-30] MEDS: METOPROLOL TARTRATE 25 MG TAB PO SCH (08:29)
[2022-09-30] MEDS: FUROSEMIDE 40 MG TAB PO SCH ×2 (08:29→15:23)
[2022-09-30] MEDS: IPRATROPIUM-ALBUTEROL 3 ML NEB INHALATION SCH ×3 (09:30→16:07)
[2022-09-30 10:22] LABS: HCT 24.5 % (34.0-46.0); HGB 8.2 gm/dL (11.4-16.0); MCH 28.6 pg (25.0-35.0); MCHC 33.3 g/dL (31.0-37.0); MCV 85.9 fL (80.0-100.0); Mean Platelet Volume 7.5; Platelet Count 172 k/uL (150-450); RBC 2.85 m/uL (3.80-5.40); RDW 14.2 % (11.5-15.5); WBC 6.9 k/uL (3.8-10.6)
[2022-09-30 12:55] VITALS: TEMP 98.3
[2022-09-30 15:45] VITALS: BP 134/64; RESP 16
[2022-09-30 16:24] VITALS: PULSE 70
--- NOTE | 2022-09-30 16:43 | P.PN ---
Subjective Progress Note Date: 09/30/22 Patient is a pleasant 86-year-old female history of hypertension, hyperlipidemia, breast cancer with prior mastectomy, CAD status post prior RCA and LAD stenting. She has been having it atypical shortness breath and chest tightness over the last few months and therefore underwent elective heart catheterization yesterday. There was difficulty obtaining axis with right radial access unsuccessful and right femoral axis obtained however unable to advance sheath and had some amount of bleeding with pressure held in the right femoral site. Eventually catheterization was able to be at pain through the l eft femoral site. Postoperatively she became lightheaded and noted to have hypotension. CT abdomen and pelvis showed right abdominal wall/inguinal hematoma measuring approximate 6 x 6 cm. There is no active extravasation. A FemoStop was placed and currently has been removed with no significant increase in hematoma. She is on dopamine at 2 mics per kilogram per minute and blood pressure still borderline in the 80s over 50s. She states she feels better currently. She is receiving normal saline at 100 mL per hour. She denies any chest pain or pressure or shortness breath currently. Hemoglobin this morning 8.1, down from 9.2 yesterday. Creatinine stable at 0.56. 09/29 Patient seen and examined. Patient has improved blood pressure and denies any chest pain or pressure. She is however having shortness breath worsened last night and therefore given Lasix with improvement. Receiving a breathing treatment currently. Blood pressure somewhat elevated 150s over 60s. Hemoglobin 7.8. 09/30 She is doing well, wants to go home. Denies any chest pain, abdominal pain, or shortness of breath. Hgb stable at 8.2. PHYSICAL EXAMINATION Vital signs reviewed. CONSTITUTIONAL: No apparent distress. HEENT: Head is normocephalic. Pupils are equal, round. Sclerae anicteric. Mucous membranes of the mouth are moist. No JVD. No carotid bruit. CHEST EXAMINATION: Lungs are clear to auscultation. No chest wall tenderness is noted on palpation or with deep breathing. HEART EXAMINATION: Regular rate and rhythm. S1, S2 heard. No murmurs, gallops or rub. ABDOMEN: Soft, nontender. Positive bowel sounds. EXTREMITIES: 2+ peripheral pulses, no lower extremity edema and no calf tenderness. NEUROLOGIC EXAMINATION: Patient is awake, alert and oriented x3. SKIN: Bilat groin sites soft, no mass or hematoma palpable, distal pulses present. right radial site with bruising, no hematoma, pulse present. ASSESSMENT 1. Post catheterization hypotension appears mainly related to acute blood loss anemia from hematoma 2. Right femoral hematoma appears stable status post FemoStop 3. CAD with recent heart catheterization showing no significant obstructive disease, prior history of LAD and RCA stenting 4. History of hypertension, on losartan and metoprolol at home 5. Acute blood loss anemia, hemoglobin 7.8 today PLAN She is doing well, remains stable. Blood pressure is controlled. Hgb is stable, no active bleeding. OK to discharge home from Cardiology standpoint. Follow up in 1 week in clinic. Objective - Vital Signs Vital signs: Vital Signs Temp 98.3 F 09/30/22 15:44 Pulse 70 09/30/22 16:23 Resp 16 09/30/22 15:44 BP 134/64 09/30/22 15:44 Pulse Ox 95 09/30/22 15:44 FiO2 Intake & Output 09/29/22 09/30/22 09/30/22 18:59 06:59 18:59 Intake Total 336 540 550 Output Total 400 Balance -64 540 550 Intake: Intake, IV Titration 100 Amount Potassium Chloride 10 meq 100 In Water For Injection 1 100ml.bag @ 100 mls/hr IVPB Q1H [facility] Rx#: [id number] Oral 236 540 550 Output: Urine 400 Other: Voiding Method Toilet Toilet Toilet # Voids 1 2 2 - Labs CBC & Chem 7: 09/30/22 09:31 09/29/22 03:24 Labs: Abnormal Lab Results - Last 24 Hours (Table) 09/30/22 Range/Units 09:31 RBC 2.85 L (3.80-5.40) m/uL Hgb 8.2 L (11.4-16.0) gm/dL Hct 24.5 L (34.0-46.0) %
== END 2022-09-30 18:09 | disposition home or self-care (01) | DRG 919 ==
LOC: CATHCVL 08:49 → 2SICU 16:39 → CATHCVL 16:45 → 3SCARD 17:37 → 2SICU 17:46 → 3SCARD 09-29 09:52
PROVIDERS: ADMIT Family Medicine; ATTEND Family Medicine
PROC: B2111ZZ Fluoroscopy of Multiple Coronary Arteries using Low Osmolar Contrast (ICD-10-PCS; 2022-09-27)
PROC: 3E033XZ Introduction of Vasopressor into Peripheral Vein, Percutaneous Approach (ICD-10-PCS; 2022-09-27)
PROC: 4A023N7 Measurement of Cardiac Sampling and Pressure, Left Heart, Percutaneous Approach (ICD-10-PCS; principal; 2022-09-27 10:30)
DX: I97.610 Postprocedural hemorrhage of a circulatory system organ or structure following a cardiac catheterization (principal); J96.01 Acute respiratory failure with hypoxia; R57.1 Hypovolemic shock; I74.5 Embolism and thrombosis of iliac artery; I74.8 Embolism and thrombosis of other arteries; D62 Acute posthemorrhagic anemia; I25.10 Atherosclerotic heart disease of native coronary artery without angina pectoris; I97.630 Postprocedural hematoma of a circulatory system organ or structure following a cardiac catheterization; E03.9 Hypothyroidism, unspecified; I10 Essential (primary) hypertension; K21.9 Gastro-esophageal reflux disease without esophagitis; R00.0 Tachycardia, unspecified; E87.70 Fluid overload, unspecified; E78.5 Hyperlipidemia, unspecified; R32 Unspecified urinary incontinence; Y84.0 Cardiac catheterization as the cause of abnormal reaction of the patient, or of later complication, without mention of misadventure at the time of the procedure; Z28.311 Partially vaccinated for COVID-19; Z95.5 Presence of coronary angioplasty implant and graft; Z90.11 Acquired absence of right breast and nipple; Z92.3 Personal history of irradiation; Z85.3 Personal history of malignant neoplasm of breast; Z92.21 Personal history of antineoplastic chemotherapy; Z87.891 Personal history of nicotine dependence; Z79.82 Long term (current) use of aspirin; Z79.890 Hormone replacement therapy; Z79.899 Other long term (current) drug therapy; Z88.0 Allergy status to penicillin; Z82.49 Family history of ischemic heart disease and other diseases of the circulatory system
CPT/HCPCS: 36410; 71045; 74176; 76937; 80048; 83735; 85025; 85027; 85610; 86850; 86900; 86901; 93454; 94640; 94760

== ENCOUNTER → 2022-10-24 | Outpatient (CLI) | payer MEDICARE ==
[2022-10-24 20:28] LABS: African American GFR (CKD) 67.6 (60.0-200.0); BUN/Creat Ratio 28.44 Ratio (12.00-20.00); Blood Urea Nitrogen 25.6 mg/dL (9.0-27.0); Calcium 9.3 mg/dL (8.7-10.3); Non-African American GFR(CKD) 58.3 (60.0-200.0); Potassium 4.8 mmol/L (3.5-5.5)
== END | disposition home or self-care (01) ==
LOC: LABWHC1 12:40
PROVIDERS: ATTEND Nurse Practitioner
DX: I10 Essential (primary) hypertension (principal); I25.10 Atherosclerotic heart disease of native coronary artery without angina pectoris
CPT/HCPCS: 36415; 80048

== ENCOUNTER 2023-08-28 10:06 | Emergency (ER) | payer MEDICARE ==
[2023-08-28 10:56] VITALS: RESP 18
--- NOTE | 2023-08-28 11:29 | ED ---
Abdominal Pain HPI - General Source: patient, family, RN notes reviewed Mode of arrival: ambulatory Limitations: no limitations <Timothy Johnson - Last Filed: 08/28/23 11:27> - General Source: patient, family, RN notes reviewed Mode of arrival: ambulatory Limitations: no limitations - History of Present Illness MD Complaint: abdominal pain <Fadia Edwards - Last Filed: 08/29/23 06:40> - General Chief Complaint: Abdominal Pain Stated Complaint: diarrhea Time Seen by Provider: 08/28/23 11:27 - History of Present Illness Initial Comments: Quick note: Patient is an 87-year-old female presenting to the ER with a chief complaint of diarrhea. She states this been going on for over a month. She also reports over the weekend she has been having increase in abdominal cramping and pain. Denies any blood in her stool. Recently took Flagyl. (Timothy Johnson) This is an 87-year-old female who presents to the emergency department for abd ominal pain and diarrhea. States that this started over a month ago. Stool is going back and forth between liquid and soft. It was initially constant, however she feels like it is getting better to some extent. She is concerned about the amount of accidents she has been having. Reports associated abdominal pain. Denies any blood in her stool or black/tarry stool. She has not had any nausea or vomiting. She finished Flagyl about a week ago without any improvement in symptoms. She has also tried taking Imodium which has not been helpful. (Fadia Edwards) - Related Data Home Medications Medication Instructions Recorded Confirmed Aspirin [Adult Low Dose Aspirin EC] 81 mg PO DAILY 08/27/15 09/27/22 Metoprolol Tartrate 25 mg PO DAILY 11/30/16 09/27/22 Levothyroxine Sodium [Synthroid] 100 mcg PO DAILY 09/07/18 09/27/22 Losartan Potassium [Cozaar] 100 mg PO DAILY 07/01/22 09/27/22 Ubidecarenone [Co Q-10] 30 mg PO DAILY 07/01/22 09/27/22 Vit C/E/Zn/Coppr/Lutein/Zeaxan 1 each PO BID 09/21/22 09/27/22 [Preservision Areds 2 Softgel] Previous Rx's Medication Instructions Recorded Atorvastatin [Lipitor] 80 mg PO HS #90 tab 09/12/18 Albuterol Inhaler [Ventolin Hfa 1 puff INHALATION QID 30 Days #8 gm 09/30/22 Inhaler] Budesonide-Formot 160-4.5 Mcg 2 puff INHALATION BID 30 Days 09/30/22 [Symbicort 160-4.5 Mcg Inhaler] #10.2 gm Furosemide [Lasix] 40 mg PO BID@0900,1600 #60 tab 09/30/22 Pantoprazole [Protonix] 40 mg PO AC-BRKFST #30 tab 09/30/22 Wheat Dextrin [Benefiber] 3 gm PO TID #100 tab 08/28/23 Allergies Allergy/AdvReac Type Severity Reaction Status Date / Time Penicillins Allergy PASSED OUT Verified 08/28/23 10:30 Review of Systems ROS Other: All systems not noted in ROS Statement are negative. <Timothy Johnson - Last Filed: 08/28/23 11:27> ROS Other: All systems not noted in ROS Statement are negative. <Fadia Edwards - Last Filed: 08/29/23 06:40> ROS Statement: Those systems with pertinent positive or pertinent negative responses have been documented in the HPI. Past Medical History Past Medical History: Coronary Artery Disease (CAD), Cancer, Chest Pain / Angina, GERD/Reflux, Hyperlipidemia, Hypertension, Osteoarthritis (OA), Pneumonia, Thyroid Disorder Additional Past Medical History / Comment(s): See Dr Villarreal's H&P. Recent fecal incontinence, states on Ciprofloxacin. HX OF BREAST CANCER WITH CHEMO & RADIATION 2005, urinary leakage-wears a pad. History of Any Multi-Drug Resistant Organisms: None Reported Past Surgical History: Appendectomy, Breast Surgery, Heart Catheterization With Stent, Hysterectomy, Tonsillectomy Additional Past Surgical History / Comment(s): LEFT CAROTID ENDARTERECTOMY, BILATERAL CATARACTS, RIGHT MASTECTOMY, STENTS X2 (09/05/2002 & 02/20/2003). Past Anesthesia/Blood Transfusion Reactions: No Reported Reaction Date of Last Stent Placement:: 02/20/2003 Past Psychological History: No Psychological Hx Reported Smoking Status: Former smoker Past Alcohol Use History: Daily Past Drug Use History: None Reported - Past Family History Father Family Medical History: Myocardial Infarction (ME) Mother Family Medical History: Myocardial Infarction (ME) <Timothy Johnson - Last Filed: 08/28/23 11:27> General Exam Limitations: no limitations <Timothy Johnson - Last Filed: 08/28/23 11:27> Limitations: no limitations General appearance: alert, in no apparent distress Head exam: Present: atraumatic, normocephalic, normal inspection Respiratory exam: Present: normal lung sounds bilaterally. Absent: respiratory distress, wheezes, rales, rhonchi, stridor Cardiovascular Exam: Present: regular rate, normal rhythm, normal heart sounds. Absent: systolic murmur, diastolic murmur, rubs, gallop, clicks GI/Abdominal exam: Present: soft, tenderness (Diffuse), normal bowel sounds. Absent: distended Neurological exam: Present: alert, oriented X3, CN II-XII intact Psychiatric exam: Present: normal affect, normal mood Skin exam: Present: warm, dry, intact, normal color. Absent: rash <Fadia Edwards - Last Filed: 08/29/23 06:40> - General Exam Comments Initial Comments: Visual Physical Exam Vital signs reviewed General: Well-appearing, nontoxic, no acute distress. Head: Normocephalic, atraumatic Eyes: PERRLA, EOMI ENT: Airway patent Chest: Nonlabored breathing Skin: No visual rash, normal skin tone Neuro: Alert and oriented 3 Musculoskeletal: No gross abnormalities (Timothy Johnson) Course Vital Signs 08/28/23 08/28/23 10:28 14:41 Temperature 98 F 98.4 F Pulse Rate 76 62 Respiratory 18 18 Rate Blood Pressure 126/81 110/76 O2 Sat by Pulse 98 97 Oximetry Medical Decision Making <Timothy Johnson - Last Filed: 08/28/23 11:27> - Lab Data Result diagrams: 08/28/23 11:15 08/28/23 11:15 - Radiology Data Radiology results: report reviewed, image reviewed <Fadia Edwards - Last Filed: 08/29/23 06:40> - Medical Decision Making I performed the quick note portion of this chart. Electronically signed by Timothy Johnson PA-C (Timothy Johnson) This is an 87 year old female who presents to the emergency department for ab dominal pain and diarrhea. Was pt. sent in by a medical professional or institution? @ -No Did you speak to anyone other than the patient for history? @ -No Did you review nursing and triage notes? @ -Yes, and I agree, it is accurate with regards to the patient's symptoms. Were old charts reviewed? @ -No Differential Diagnosis? @ -Differential Abdominal Pain Women: Appendicitis, Cholecystitis, diverticulosis, ischemic bowel, pancreatitis, hepatitis, UTI, gastroenteritis, AAA, incarcerated hernia, bowel obstruction, constipation, inflammatory bowel, hepatitis, peptic ulcer disease, splenic infarction, perforated viscus, vulvitis, ovarian torsion, PID, kidney stone, placenta abruption, this is not meant to be an all-inclusive list EKG interpreted by me (3pts min.)? @ -Not obtained X-rays interpreted by me (1pt min.)? @ -Not obtained CT interpreted by me (1pt min.)? @ -CT scan of the abdomen and pelvis obtained. My interpretation identifies fecal impaction. U/S interpreted by me (1pt. min.)? @ -Not obtained What testing was considered but not performed? (CT, X-rays, U/S, labs)? Why? @ -None What meds were considered but not given? Why? @ -None Did you discuss the management of the patient with other professionals? @ -No Did you reconcile home meds? @ -No Was smoking cessation discussed for >3mins.? @ -No Was critical care preformed (if so, how long)? @ -No Were there social determinants of health that impacted care today? How? (Homelessness, low income, unemployed, alcoholism, drug addiction, transportation, low edu. Level, literacy, decrease access to med. care, half-way, rehab)? @ -No Was there de-escalation of care discussed even if they declined? (Discuss DNR or withdrawal of care, Hospice)? @ -No What co-morbidities impacted this encounter? (DM, HTN, Smoking, COPD, CAD, Cancer, CVA, Hep., AIDS, mental health diagnosis, sleep apnea, morbid obesity)? @ -HTN, HLD Was patient admitted / discharged? @ -Discharged. Lab work unremarkable. Urinalysis not suggestive of infection. COVID, influenza, and RSV testing were negative. CT scan of the abdomen and pelvis demonstrates fecal impaction and questionable mild thickening of the distal sigmoid colon and rectum. Discussed with the patient that the fecal impaction is what is causing her to have the watery stool. Fleet enema administered in the emergency department and the patient produced a large bowel movement. She was given a prescription for Benefiber to help regulate her bowel movements moving forward. Patient advised to increase her fluid intake and have close follow-up with her primary care provider. Undiagnosed new problem with uncertain prognosis? @ -None Drug Therapy requiring intensive monitoring for toxicity (Heparin, Nitro, Insulin, Cardizem)? @ -None Were any procedures done? @ -None Diagnosis/symptom? @ -Fecal impaction Acute, or Chronic, or Acute on Chronic? @ -Acute Uncomplicated (without systemic symptoms) or Complicated (systemic symptoms)? @ -Uncomplicated Side effects of treatment? @ -None Exacerbation, Progression, or Severe Exacerbation] @ -Not applicable Poses a threat to life or bodily function? @ -No Return precautions reviewed in depth, the patient is instructed to return to the emergency department with any new, worsening, or concerning symptoms. Patient verbalized understanding. This case was discussed in detail with the attending ED physician, Dr. Arcos. Presentation, findings, and treatment plan discussed in detail as well. (Fadia Edwards) - Lab Data Lab Results 08/28/23 08/28/23 08/28/23 Range/Units 11:15 11:15 11:15 WBC 7.6 (3.8-10.6) k/uL RBC 4.69 (3.80-5.40) m/uL Hgb 12.9 (11.4-16.0) gm/dL Hct 38.9 (34.0-46.0) % MCV 82.9 (80.0-100.0) fL MCH 27.4 (25.0-35.0) pg MCHC 33.1 (31.0-37.0) g/dL RDW 14.4 (11.5-15.5) % Plt Count 241 (150-450) k/uL MPV 7.5 Neutrophils % 69 % Lymphocytes % 19 % Monocytes % 7 % Eosinophils % 2 % Basophils % 1 % Neutrophils # 5.2 (1.3-7.7) k/uL Lymphocytes # 1.4 (1.0-4.8) k/uL Monocytes # 0.5 (0-1.0) k/uL Eosinophils # 0.1 (0-0.7) k/uL Basophils # 0.0 (0-0.2) k/uL Sodium 134 L (137-145) mmol/L Potassium 4.2 (3.5-5.1) mmol/L Chloride 104 (98-107) mmol/L Carbon Dioxide 19 L (22-30) mmol/L Anion Gap 11 mmol/L BUN 27 H (7-17) mg/dL Creatinine 0.54 (0.52-1.04) mg/dL Est GFR (CKD-EPI)AfAm >90 (>60 ml/min/1.73 sqM) Est GFR (CKD-EPI)NonAf 86 (>60 ml/min/1.73 sqM) Glucose 90 (74-99) mg/dL Calcium 9.5 (8.4-10.2) mg/dL Phosphorus 3.1 (2.5-4.5) mg/dL Magnesium 1.8 (1.6-2.3) mg/dL Total Bilirubin 0.8 (0.2-1.3) mg/dL AST 38 H (14-36) U/L ALT 20 (4-34) U/L Alkaline Phosphatase 104 (38-126) U/L Total Protein 7.1 (6.3-8.2) g/dL Albumin 3.9 (3.5-5.0) g/dL Amylase 54 (30-110) U/L Lipase 82 (23-300) U/L Urine Color Urine Appearance (Clear) Urine pH (5.0-8.0) Ur Specific [place] (1.001-1.035) Urine Protein (Negative) Urine Glucose (UA) (Negative) Urine Ketones (Negative) Urine Blood (Negative) Urine Nitrite (Negative) Urine Bilirubin (Negative) Urine Urobilinogen (<2.0) mg/dL Ur Leukocyte Esterase (Negative) Urine RBC (0-5) /hpf Urine WBC (0-5) /hpf Ur Squamous Epith Cells (0-4) /hpf Urine Bacteria (None) /hpf Urine Mucus (None) /hpf Influenza Type A (PCR) (Not Detectd) Influenza Type B (PCR) (Not Detectd) RSV (PCR) (Not Detectd) SARS-CoV-2 (PCR) (Not Detectd) 08/28/23 08/28/23 Range/Units 12:07 12:07 WBC (3.8-10.6) k/uL RBC (3.80-5.40) m/uL Hgb (11.4-16.0) gm/dL Hct (34.0-46.0) % MCV (80.0-100.0) fL MCH (25.0-35.0) pg MCHC (31.0-37.0) g/dL RDW (11.5-15.5) % Plt Count (150-450) k/uL MPV Neutrophils % % Lymphocytes % % Monocytes % % Eosinophils % % Basophils % % Neutrophils # (1.3-7.7) k/uL Lymphocytes # (1.0-4.8) k/uL Monocytes # (0-1.0) k/uL Eosinophils # (0-0.7) k/uL Basophils # (0-0.2) k/uL Sodium (137-145) mmol/L Potassium (3.5-5.1) mmol/L Chloride (98-107) mmol/L Carbon Dioxide (22-30) mmol/L Anion Gap mmol/L BUN (7-17) mg/dL Creatinine (0.52-1.04) mg/dL Est GFR (CKD-EPI)AfAm (>60 ml/min/1.73 sqM) Est GFR (CKD-EPI)NonAf (>60 ml/min/1.73 sqM) Glucose (74-99) mg/dL Calcium (8.4-10.2) mg/dL Phosphorus (2.5-4.5) mg/dL Magnesium (1.6-2.3) mg/dL Total Bilirubin (0.2-1.3) mg/dL AST (14-36) U/L ALT (4-34) U/L Alkaline Phosphatase (38-126) U/L Total Protein (6.3-8.2) g/dL Albumin (3.5-5.0) g/dL Amylase (30-110) U/L Lipase (23-300) U/L Urine Color Light Yellow Urine Appearance Cloudy H (Clear) Urine pH 5.5 (5.0-8.0) Ur Specific [place] 1.013 (1.001-1.035) Urine Protein Negative (Negative) Urine Glucose (UA) Negative (Negative) Urine Ketones Negative (Negative) Urine Blood Negative (Negative) Urine Nitrite Negative (Negative) Urine Bilirubin Negative (Negative) Urine Urobilinogen <2.0 (<2.0) mg/dL Ur Leukocyte Esterase Small H (Negative) Urine RBC 4 (0-5) /hpf Urine WBC 3 (0-5) /hpf Ur Squamous Epith Cells 2 (0-4) /hpf Urine Bacteria Occasional H (None) /hpf Urine Mucus Rare H (None) /hpf Influenza Type A (PCR) Not Detected (Not Detectd) Influenza Type B (PCR) Not Detected (Not Detectd) RSV (PCR) Not Detected (Not Detectd) SARS-CoV-2 (PCR) Not Detected (Not Detectd) Disposition <Timothy Johnson - Last Filed: 08/28/23 11:27> Is patient prescribed a controlled substance at d/c from ED?: No Time of Disposition: 14:14 <Fadia Edwards - Last Filed: 08/29/23 06:40> Clinical Impression: Fecal impaction Disposition: HOME SELF-CARE Instructions (If sedation given, give patient instructions): Fecal Impaction (ED) Additional Instructions: Return to the emergency department with any new, worsening, or concerning symptoms. Start taking the Benefiber 3 times daily. You can take this for a prolonged period of time to help regulate your bowels. Also consider starting an [id number] probiotic. Make sure you are drinking plenty of fluids. Follow up with your primary care provider in 1-2 days. Prescriptions: Wheat Dextrin [Benefiber] 3 gm PO TID #100 tab Referrals: Kavon Schaefer DO [Primary Care Provider] - 1-2 days
[2023-08-28 11:32] LABS: Basophils % (A) 1 %; Eosinophils # (A) 0.1 k/uL (0-0.7); Eosinophils % (A) 2 %; HCT 38.9 % (34.0-46.0); HGB 12.9 gm/dL (11.4-16.0); Lymphocytes # (A) 1.4 k/uL (1.0-4.8); Lymphocytes % (A) 19 %; MCH 27.4 pg (25.0-35.0); MCHC 33.1 g/dL (31.0-37.0); MCV 82.9 fL (80.0-100.0); Mean Platelet Volume 7.5; Monocytes # (A) 0.5 k/uL (0-1.0); Monocytes % (A) 7 %; Neutrophils # (A) 5.2 k/uL (1.3-7.7); Neutrophils % (A) 69 %; Platelet Count 241 k/uL (150-450); RBC 4.69 m/uL (3.80-5.40); RDW 14.4 % (11.5-15.5); WBC 7.6 k/uL (3.8-10.6)
[2023-08-28 11:43] LABS: ALT 20 U/L (4-34); AST 38 U/L (14-36); African American GFR (CKD) >90 (>60 ml/min/1.73 sqM); Albumin 3.9 g/dL (3.5-5.0); Alkaline Phosphatase 104 U/L (38-126); Amylase 54 U/L (30-110); Anion Gap 11 mmol/L; Blood Urea Nitrogen 27 mg/dL (7-17); Calcium 9.5 mg/dL (8.4-10.2); Carbon Dioxide 19 mmol/L (22-30); Chloride 104 mmol/L (98-107); Glucose 90 mg/dL (74-99); Lipase 82 U/L (23-300); Non-African American GFR(CKD) 86 (>60 ml/min/1.73 sqM); Potassium 4.2 mmol/L (3.5-5.1); Sodium 134 mmol/L (137-145); Total Bilirubin 0.8 mg/dL (0.2-1.3); Total Protein 7.1 g/dL (6.3-8.2)
--- NOTE | 2023-08-28 12:32 | CT ---
EXAMINATION TYPE: CT abdomen pelvis w con DATE OF EXAM: 08/28/2023 COMPARISON: 09/27/2022 HISTORY: Abdominal pain, acute, non-localized CT DLP: 658.8 mGycm Automated exposure control for dose reduction was used. TECHNIQUE: Helical acquisition of images was performed from the lung bases through the pelvis. CONTRAST: Performed without Oral Contrast and with IV Contrast, patient injected with 100 ml mL of Isovue 300. FINDINGS: The lung bases are clear. The gallbladder is normal without distention, wall thickening, pericholecystic fluid or gallstones. T here is no biliary ductal dilatation. There is no focal mass or organomegaly involving the liver, pancreas, spleen or adrenal glands. There is no solid renal mass or hydronephrosis and there is homogeneous contrast enhancement of the r enal parenchyma. The caliber the abdominal aorta is normal is no retroperitoneal adenopathy or hemorr kristina. The bowel loops are normal in caliber and there is no evidence of dilatation or obstruction. . There is a large amount of stool within the colon and rectum likely fecal impaction. There is also suggesti on of mild diffuse uniform thickening of the rectal wall and distal sigmoid colon. There is no free i ntraperitoneal air or fluid. No pelvic mass, free fluid, abscess or adenopathy. 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 The osseous structures and soft tissues are intact. IMPRESSION: 1. Fecal impaction and large amount of stool within the colon and rectum. There is no bowel obstructi on. 2. Questionable mild thickening of the distal sigmoid colon and rectum.
[2023-08-28 12:36] LABS: Magnesium 1.8 mg/dL (1.6-2.3); Phosphorus 3.1 mg/dL (2.5-4.5)
[2023-08-28] MEDS: SODIUM CHLORIDE 0.9% 1,000 ML IV STA (12:40)
[2023-08-28] MEDS: NA PHOS,M-B/NA PHOS,DI-BA 133 ML ENEMA RECTAL STA (13:29)
[2023-08-28 15:09] VITALS: BP 110/76; PULSE 62; TEMP 98.4
[2023-08-28 18:11] LABS: Appearance,Urine Cloudy (Clear); Bacteria,Urine Occasional /hpf; Bilirubin,Urine Negative (Negative); Blood,Urine Negative (Negative); Color,Urine Light Yellow; Glucose,Urine (UA) Negative (Negative); Ketones,Urine Negative (Negative); Leukocyte Esterase,Urine Small (Negative); Mucus,Urine Rare /hpf; Nitrite,Urine Negative (Negative); PH, Urine 5.5 (5.0-8.0); Protein,Urine Negative (Negative); RBC,Urine 4 /hpf (0-5); Specific Gravity,Urine 1.013 (1.001-1.035); Squamous Epithelial Cell,Urine 2 /hpf (0-4); Urobilinogen,Urine <2.0 mg/dL (<2.0); WBC,Urine 3 /hpf (0-5)
== END 2023-08-28 15:26 | disposition home or self-care (01) ==
LOC: EC 10:06
DX: K56.41 Fecal impaction (principal); Z88.0 Allergy status to penicillin; Z87.891 Personal history of nicotine dependence
CPT/HCPCS: 36415; 80053; 82150; 83690; 83735; 84100; 85025; 81001; 87045; 83630; 87046; 87636; 74177; 99284; 96360; 96361; Q9967